=== PATIENT | female | born 1945 | race Caucasian/White ===

== ENCOUNTER 2017-06-03 12:43 | Emergency (ER) | payer MEDICARE, OTHER ==
[2017-06-03 13:37] LABS: #Basophils 0.1 thou/uL (0.0-0.2); #Eosinphils 0.2 thou/uL (0.0-0.7); #Lymphocytes 1.5 thou/uL (1.20-3.40); #Monocytes 0.9 thou/uL (0.11-0.59); #Neutrophils 11.9 thou/uL (1.40-6.50); %Basophils 0.6 % (0.0-1.0); %Eosinophils 1.2 % (0.0-10.0); %Lymphocytes 10.4 % (21.0-51.0); %Monocytes 6.2 % (0.0-10.0); %Neutrophils 81.6 % (42.0-75.0); Hemoglobin 12.3 g/dL (12.0-16.0); Mean Corpuscular HGB CONC 36.4 g/dL (32.0-36.0); Mean Corpuscular Volume 90.6 fl (81.0-99.0); Mean Platelet Volume 6.6 fL (7.4-10.4); Platelet Count 276 thou/uL (130-400); RBC Distribution Width 11.6 % (11.5-14.5); Red Blood Cell (RBC) Count 3.73 mill/uL (4.20-5.40); White Blood Cell (WBC) Count 14.5 thou/uL (4.8-10.8)
[2017-06-03 13:41] LABS: Prothrombin Time 13.4 SEC (12.0-14.7)
[2017-06-03 13:42] LABS: PTT 34.9 SEC (22.9-36.1)
[2017-06-03 13:49] LABS: ALT (SGPT) 24 U/L (8-55); AST (SGOT) 41 U/L (5-34); Albumin 4.1 g/dL (3.4-4.8); Alkaline Phosphatase 69 U/L (40-150); Anion Gap 14 mmol/L (10-20); BUN (Urea Nitrogen) 25 mg/dL (9.8-20.1); Bilirubin, Total 0.6 mg/dL (0.2-1.2); Calc. Creatinine Clearance 0 mL/min (70-130); Calcium 9.5 mg/dL (7.8-10.44); Carbon Dioxide 22 mmol/L (23-31); Chloride 107 mmol/L (98-107); Estimated GFR-MDRD 46; Globulin 2.7 g/dL (2.4-3.5); Glucose 152 mg/dL (83-110); Lipase 20 U/L (8-78); Potassium 3.9 mmol/L (3.5-5.1); Protein, Total 6.8 g/dL (6.0-8.3); Sodium 139 mmol/L (136-145)
--- NOTE | 2017-06-03 14:13 | RAD ---
LEFT KNEE FOUR VIEWS: History: Trauma. Comparison: None. FINDINGS: There is moderate medial soft tissue edema. No acute fracture. No malalignment. No significant joint effusion. IMPRESSION: Medial soft tissue contusion. POS: [facility]
--- NOTE | 2017-06-03 14:16 | CT ---
CT BRAIN WITHOUT CONTRAST: History: Trauma, injury, trampled by horse. Headache. No loss of consciousness. FINDINGS: No evidence of acute infarct, hemorrhage, midline shift, or abnormal extraaxial fluid collections are seen. The ventricular size is appropriate and the basilar cisterns patent. The bony calvarium is int act. The visualized paranasal sinuses and mastoid air cells are well aerated. IMPRESSION: No CT evidence of acute intracranial process. POS: [facility]
[2017-06-03] MEDS ORDERED: Lidocaine 1% PF 5 ML VIAL ONE (14:35)
--- NOTE | 2017-06-03 14:59 | CT ---
CT CERVICAL SPINE NONCONTRAST: HISTORY: Neck injury. FINDINGS: Vertebral body heights are maintained. There is prominent osteophytosis and multilevel disk space na rrowing. Minimal spondylolisthesis at the cervicothoracic junction has the appearance of degenerativ e changes. There are multilevel severe foraminal stenoses. No acute fracture or dislocation. IMPRESSION: 1. Prominent cervical spondylosis. 2. No acute osseous abnormalities are demonstrated. POS: [facility]
--- NOTE | 2017-06-03 15:02 | CT ---
CT FACE WITHOUT CONTRAST: HISTORY: Trauma. Injured by a horse. COMPARISON: None. FINDINGS: There is a fracture of the maxillary alveolar bone, through the right central and lateral incisors an d canine, with anterior displacement of bone. The posterior alveolar bone does not appear to be frac tured. Normal temporomandibular joint alignment. The mandible is intact. The nasal process of the maxilla is intact. The pterygoid plates are intact. The nasal bones are intact. The medial orbital graham and the later al orbital graham are intact. The globes are normal. No retrobulbar hematoma. There are erosions of the odontoid process. The occipital condyles are intact. The mastoids are wel l aerated. IMPRESSION: Anteriorly displaced fracture of the alveolar bone, right maxilla, through the level of the right kuldeep tral and lateral incisors and right canine. POS: [facility]
--- NOTE | 2017-06-03 15:24 | CT ---
CT CHEST WITH IV CONTRAST: CT ABDOMEN AND PELVIS WITH IV CONTRAST: CT THORACIC SPINE NONCONTRAST: CT LUMBAR SPINE NONCONTRAST: HISTORY: Injured by horse. Chest pain. Abdomen pain. Back injury. FINDINGS: No evidence of pneumothorax or mediastinal hematoma. A 0.4 cm, noncalcified subpleural nodule is pre sent at the left anterior lung base. Multiple stones are present throughout the nondilated renal markus yces. The largest is a 1 cm calculus in the left renal pelvis. No free air or free fluid is apparen t within the abdomen. Scattered diverticula arise from the colon without adjacent inflammation. Rig ht hip internal fixation. Vertebral body heights of the thoracolumbar spine are intact. Grade 1 degenerative spondylolisthesis is apparent at the L4-L5 level and at the cervicothoracic junction. Prominent multilevel osteophyto sis and gas disk phenomenon. No acute fracture or dislocation. IMPRESSION: 1. No acute traumatic injury is demonstrated. 2. Bilateral renal calculi, measuring up to [address]: [facility]
== END 2017-06-03 15:35 | disposition home or self-care (01) ==
LOC: SCSER 12:43
DX: S01.511A Laceration without foreign body of lip, initial encounter (principal); S80.02XA Contusion of left knee, initial encounter; S20.01XA Contusion of right breast, initial encounter; S00.412A Abrasion of left ear, initial encounter; E03.9 Hypothyroidism, unspecified; E78.5 Hyperlipidemia, unspecified; W55.19XA Other contact with horse, initial encounter
CPT/HCPCS: 12002; 40650; 70450; 70486; 71260; 72125; 74177; 80053; 83690; 85025; 85610; 85730; 86850; 86900; 86901; 96374; J2001

== ENCOUNTER 2017-08-04 13:53 | Outpatient (CLI) | payer MEDICARE, OTHER ==
[2017-08-04 15:32] LABS: Hemoglobin 13.3 g/dL (12.0-16.0); Mean Corpuscular HGB CONC 35.2 g/dL (32.0-36.0); Mean Corpuscular Hemoglobin 33.1 pg (27.0-31.0); Mean Corpuscular Volume 93.9 fL (78.0-98.0); Mean Platelet Volume 6.3 fL (7.4-10.4); Platelet Count 248 thou/uL (130-400); RBC Distribution Width 11.9 % (11.5-14.5); Red Blood Cell (RBC) Count 4.03 mill/uL (4.20-5.40); White Blood Cell (WBC) Count 6.9 thou/uL (4.8-10.8)
[2017-08-04 15:34] LABS: Platelet Count 243 thou/uL (130-400)
[2017-08-04 15:42] LABS: PTT 47.4 SEC (22.9-36.1)
[2017-08-04 15:54] LABS: Anion Gap 13 mmol/L (10-20); BUN (Urea Nitrogen) 26 mg/dL (9.8-20.1); Calc. Creatinine Clearance 0 mL/min (70-130); Calcium 10.5 mg/dL (7.8-10.44); Carbon Dioxide 26 mmol/L (23-31); Chloride 105 mmol/L (98-107); Estimated GFR-MDRD 69; Glucose 100 mg/dL (83-110); Potassium 3.6 mmol/L (3.5-5.1); Sodium 140 mmol/L (136-145)
--- NOTE | 2017-08-04 15:58 | RAD ---
ONE VIEW ABDOMEN: HISTORY: Preoperative exam. Renal calculi. FINDINGS: There is a calcification in the left hemiabdomen, paraspinal in location, measuring approximately 1.4 cm. The calcification is presumed to be in the proximal left ureter. Calcifications in the left and right hemipelvis are presumed to be vascular. Bowel gas pattern is no nspecific. Scattered fecal material is noted throughout the colon. Correlate for a component of con stipation. IMPRESSION: Left ureteral calculus as above. POS: [facility]
== END 2017-08-04 13:54 | disposition home or self-care (01) ==
LOC: LABBT 13:53
PROVIDERS: ATTEND Urology
DX: Z01.812 Encounter for preprocedural laboratory examination (principal); N20.1 Calculus of ureter
CPT/HCPCS: 74018; 80048; 85027; 85576; 85610; 85730; 93005; 93010

== ENCOUNTER 2017-08-06 05:46 | Day surgery (SDC) | payer MEDICARE, OTHER ==
[2017-08-04 14:22] VITALS: BMI 29.8
[2017-08-06] MEDS ORDERED: Iothalamate Meglumine 60% 50 ML VIAL FS ONE (06:27)
[2017-08-06] MEDS ORDERED: Famotidine/PF 20 mg/2ml Vial ONE (06:57)
[2017-08-06] MEDS ORDERED: Fentanyl 100 MCG/2 ML VIAL ONE (06:57)
[2017-08-06] MEDS ORDERED: Levofloxacin 500 mg/D5W 100 ml Premix Bag ONE (07:16)
[2017-08-06] MEDS ORDERED: Scopolamine 1.5 mg/72 hour Patch ONE (07:22)
[2017-08-06] MEDS ORDERED: Promethazine HCl 25 MG/ML VIAL ONE (07:35)
--- NOTE | 2017-08-06 08:18 | RAD ---
SUPINE ABDOMEN: INDICATION: Preoperative evaluation. COMPARISON: 08/04/17. FINDINGS: The calcification left abdomen at the level of the L3 vertebrae is unchanged in position. The rounded calcification overlying the left sacrum is unchanged. Numerous vascular calcifications i n the peripheral pelvis are unchanged. There is prominent stool throughout the colon. No significan t interval change. POS: [facility]
--- NOTE | 2017-08-06 10:33 | OP ---
DATE OF PROCEDURE: 08/06/2017 PREOPERATIVE DIAGNOSIS: Left proximal ureteral stone. POSTOPERATIVE DIAGNOSIS: Left proximal ureteral stone. PROCEDURE PERFORMED: Left ESWL. SURGEON: Dr. Marcelino Haile ANESTHETIC: General. ESTIMATED BLOOD LOSS: Not recorded. FINDINGS: There is a kind of a skinny triangular shaped stone in its greatest dimension measured 1.2 cm in the proximal left ureter that was treated with total of about 2600 shocks and a maximum KV lev el of 5. About 2100 were given to the UPJ region and another 500 were given more to the mid junction of the proximal mid ureter away from the lower pole of the kidney. The stone did appear to fragment very well and for that reason a stent was not placed. OPERATIVE TECHNIQUE: After obtaining written and verbal consent from the patient, after documenting normal preoperative blood work, ensuring we could see the stone on a preoperative KUB and after recei ving IV Levaquin, she was taken to the operating suite. She was placed in the supine position on the treatment table. PlexiPulses were placed on her lower extremities and turned on. She was given a g eneral anesthetic and oral obturator intubation. She was placed in the supine position on the [facility] ent table. She was given a general anesthetic, oral obturator intubation. PlexiPulses placed on her lower extremities. The stone was visualized with the fluoroscopy unit. She was coupled with the li thotripsy unit and stone was placed in treatment focal point. Shockwave therapy was commenced. Fluo roscopy was used intermittently to document stone fragmentation and repositioned as necessary. The s tone started breaking up right away, some of the fragments moved down and we did follow them down and treated them more in the proximal ureter and then came back up and treated some remaining fragments that actually looked like they had fallen back into the renal pelvis. After 2600 shocks we could see no further stones to treat and at this point the procedure was terminated. She was awakened, extuba andry, and taken by stretcher to the recovery room.
[2017-08-06] MEDS ORDERED: Lidocaine 1% PF 5 ML VIAL ONE (14:32)
[2017-08-06] MEDS ORDERED: ePHEDrine/0.9% NaCl/PF SYRINGE 50 mg/10 ml ONE (14:32)
[2017-08-06] MEDS ORDERED: Dexamethasone 20 MG/5 ML VIAL ONE (14:32)
[2017-08-06] MEDS ORDERED: PHENYLEPHRINE-NS 100 MCG/ML 10 ML SYRINGE ONE (14:32)
[2017-08-06] MEDS ORDERED: PROPOFOL 200 MG/20 ML VIAL ONE (14:32)
== END 2017-08-06 10:42 | disposition home or self-care (01) ==
LOC: SDC 05:46
PROVIDERS: ATTEND Urology
PROC: 0TF7XZZ Fragmentation in Left Ureter, External Approach (ICD-10-PCS; principal; 2017-08-06)
DX: N20.1 Calculus of ureter (principal); I10 Essential (primary) hypertension; E78.00 Pure hypercholesterolemia, unspecified; Z87.442 Personal history of urinary calculi; Z88.5 Allergy status to narcotic agent; Z88.7 Allergy status to serum and vaccine; Z79.899 Other long term (current) drug therapy
CPT/HCPCS: 74018; J0131; J1100; J1956; J2001; J2550; J2704; J3010; Q9961; S0028

== ENCOUNTER 2018-04-22 05:59 | Day surgery (SDC) | payer MEDICARE, OTHER ==
[2018-04-21 12:29] VITALS: BMI 30.8
[2018-04-22] MEDS ORDERED: Iothalamate Meglumine 60% 50 ML VIAL FS ONE (06:31)
[2018-04-22] MEDS ORDERED: Fentanyl 100 MCG/2 ML VIAL ONE (06:38)
[2018-04-22] MEDS ORDERED: Famotidine/PF 20 mg/2ml Vial ONE (06:39)
[2018-04-22] MEDS ORDERED: Scopolamine 1.5 mg/72 hour Patch ONE (06:58)
[2018-04-22 07:49] LABS: #Basophils 0.1 thou/uL (0.0-0.2); #Eosinphils 0.2 thou/uL (0.0-0.7); #Lymphocytes 1.5 thou/uL (1.20-3.40); #Monocytes 0.5 thou/uL (0.11-0.59); #Neutrophils 2.8 thou/uL (1.40-6.50); %Basophils 1.5 % (0.0-1.0); %Eosinophils 4.6 % (0.0-10.0); %Lymphocytes 29.1 % (21.0-51.0); %Monocytes 9.6 % (0.0-10.0); %Neutrophils 55.3 % (42.0-75.0); Hemoglobin 13.2 g/dL (12.0-16.0); Mean Corpuscular HGB CONC 34.1 g/dL (32.0-36.0); Mean Corpuscular Hemoglobin 32.7 pg (27.0-31.0); Mean Corpuscular Volume 95.8 fL (78.0-98.0); Mean Platelet Volume 7.1 fL (7.4-10.4); Platelet Count 209 thou/uL (130-400); RBC Distribution Width 11.4 % (11.5-14.5); Red Blood Cell (RBC) Count 4.04 mill/uL (4.20-5.40); White Blood Cell (WBC) Count 5.1 thou/uL (4.8-10.8)
[2018-04-22 07:50] LABS: Platelet Count 209 thou/uL (130-400)
[2018-04-22 07:55] LABS: Prothrombin Time 12.8 SEC (12.0-14.7)
[2018-04-22 07:56] LABS: PTT 46.5 SEC (22.9-36.1)
--- NOTE | 2018-04-22 08:01 | RAD ---
PREOPERATIVE RADIOGRAPH ABDOMEN: HISTORY: Patient with renal calculi. History of gross hematuria. FINDINGS: AP abdomen demonstrates bilateral renal calculi again seen. This is seen in the mid pole of the righ t kidney and in the upper pole of the left kidney. This is compatible with nonobstructing bilateral renal calculi. There is a large area of calcification in the left sacral region as well as numerous calcifications seen in the pelvis compatible with phleboliths. These appear to be outside of the cou rse of the ureters seen on CT from 03/16/2018. POS: [facility]
[2018-04-22 08:08] LABS: Anion Gap 10 mmol/L (10-20); BUN (Urea Nitrogen) 27 mg/dL (9.8-20.1); Calc. Creatinine Clearance 64 mL/min (70-130); Calcium 10.2 mg/dL (7.8-10.44); Carbon Dioxide 27 mmol/L (23-31); Chloride 106 mmol/L (98-107); Estimated GFR-MDRD 64; Glucose 95 mg/dL (83-110); Sodium 139 mmol/L (136-145)
--- NOTE | 2018-04-22 13:32 | OP ---
DATE OF PROCEDURE: 04/22/2018 PREOPERATIVE DIAGNOSIS: Right renal stone. POSTOPERATIVE DIAGNOSIS: Right renal stone. PROCEDURE PERFORMED: Right extracorporeal shock wave lithotripsy. ANESTHETIC: General. ESTIMATED BLOOD LOSS: Not recorded. FINDINGS: There was a 6 to 8 mm right renal pelvic stone that was treated with 2000 shocks at level 4 and level 5, mostly at level 4, probably 500 shocks were given at level 5. It did appear to fragment. The stent was not placed. DESCRIPTION OF PROCEDURE: Obtained written and verbal consent from the patient after being sure we could see the stone on the preoperative KUB and documenting normal preoperative blood work, she was taken to the operating suite. She was placed in the supine position on the treatment table. PlexiPulses were placed on her lower extremities and turned on. She was given a general anesthetic and oral obturator intubation. She was coupled to the lithotripsy unit. The stone was placed in treatment focal point. Shockwave therapy was started at very low kV and a low rate. After a couple of 100 shocks, a 5 minute pause was given. We then restarted the treatment, slowly going up to level 4, the last 500 or so level 5, treating at about 60 shocks per minute. Fluoroscopy was used intermittently to document stone fragmentation and reposition as necessary. It did appear that the stone fragmented well. No stent was placed. At the end of 2000 shocks, the procedure was terminated. She was awakened, extubated, and taken by hilda to recovery room. Job ID: [id number]
[2018-04-22] MEDS ORDERED: ePHEDrine 50 MG/ML VIAL ONE (15:10)
[2018-04-22] MEDS ORDERED: Ondansetron PF 4 MG/2 ML Vial ONE (15:10)
[2018-04-22] MEDS ORDERED: PHENYLEPHRINE-NS 100 MCG/ML 10 ML SYRINGE ONE (15:10)
[2018-04-22] MEDS ORDERED: Glycopyrrolate 0.2 MG/ML 5 ML SYRINGE ONE (15:10)
[2018-04-22] MEDS ORDERED: Metoclopramide HCl 10 MG/2 ML VIAL ONE (15:10)
[2018-04-22] MEDS ORDERED: Dexamethasone 20 MG/5 ML VIAL ONE (15:10)
[2018-04-22] MEDS ORDERED: Lidocaine 1% PF 5 ML VIAL ONE (15:10)
[2018-04-22] MEDS ORDERED: PROPOFOL 200 MG/20 ML VIAL ONE (15:10)
--- NOTE | 2018-04-22 18:43 | EKG ---
Test Reason : PREOP Blood Pressure : / mmHG Vent. Rate : 059 BPM Atrial Rate : 059 BPM P-R Int : 160 ms QRS Dur : 094 ms QT Int : 432 ms P-R-T Axes : 010 -29 036 degrees QTc Int : 427 ms Sinus bradycardia with sinus arrhythmia Otherwise normal ECG When compared with ECG of 04-AUG-2017 15:19, No significant change was found Confirmed by DR. Muna FRANZ (3) on 04/22/2018 6:42:39 PM Referred By: CASIE Confirmed By:DR. Muna FRANZ
== END 2018-04-22 12:00 | disposition home or self-care (01) ==
LOC: SDC 05:59
PROVIDERS: ATTEND Urology
PROC: 0TF3XZZ Fragmentation in Right Kidney Pelvis, External Approach (ICD-10-PCS; principal; 2018-04-22)
DX: N20.0 Calculus of kidney (principal); E03.9 Hypothyroidism, unspecified; K21.9 Gastro-esophageal reflux disease without esophagitis; F32.9 Major depressive disorder, single episode, unspecified; I10 Essential (primary) hypertension; Z79.82 Long term (current) use of aspirin; Z79.899 Other long term (current) drug therapy; Z88.5 Allergy status to narcotic agent; Z88.7 Allergy status to serum and vaccine
CPT/HCPCS: 36415; 74018; 80048; 85025; 85576; 85610; 85730; 93005; 93010; J0131; J1100; J2001; J2405; J2704; J2765; J3010; J3490; Q9961; S0028

== ENCOUNTER 2018-05-28 11:42 | Outpatient (CLI) | payer MEDICARE, OTHER ==
--- NOTE | 2018-05-28 12:07 | RAD ---
Lumbar spine 2 views HISTORY: Low back pain. Right leg radiculopathy. COMPARISON: 02/26/2010. FINDINGS: There are 5 lumbar type vertebrae. Pedicles are intact. Leftward convex rotatory scoliotic curvature of the upper lumbar spine on the frontal view. Vertebral body heights are maintained on the lateral view. Disc space narrowing and endplate changes are most severe at the L1-2 level. Gas disc phenomenon at this level. Minimal degenerative retrolisthesis. Grade 1 spondylolisthesis at the L4-5 level. Prominent osteophytosis throughout the lower facets. Oss eous structures are demineralized. Phleboliths project over the pelvis. Metallic clips over the gallbladder fossa. IMPRESSION: Progression of now prominent osseous degenerative changes throughout the lumbar spine. No evidence of compression fracture. Osteoporosis.
== END 2018-05-28 11:43 | disposition home or self-care (01) ==
LOC: SCSRAD 11:42
PROVIDERS: ATTEND Psychiatry & Neurology Neurology
DX: M51.26 Other intervertebral disc displacement, lumbar region (principal); M47.816 Spondylosis without myelopathy or radiculopathy, lumbar region; M81.0 Age-related osteoporosis without current pathological fracture
CPT/HCPCS: 72100

== ENCOUNTER 2018-12-01 10:37 | Outpatient (CLI) | payer MEDICARE, OTHER ==
--- NOTE | 2018-12-01 15:55 | MRI ---
MR OF THE LEFT SHOULDER WITHOUT CONTRAST; 12/01/18 INDICATION: History of fall with left shoulder pain. FINDINGS: There is a high grade articular surface, near full thickness tear involving the subscapularis. There is a minimally displaced vertically oriented fracture involving the posterior glenoid. There is medi al subluxation of the proximal long head of the biceps tendon with biceps tendinosis. There is a part ial thickness split tear involving the proximal long head of the biceps tendon as it enters the gleno humeral joint space. There is prominent degenerative signal involving the biceps anchor complex and s uperior glenoid labrum. There is a high grade partial thickness articular surface tear involving the anterior to mid supraspinatus with intertendinous delamination involving the posterior supraspinatus and conjoined tendon at the tendon insertion. The supraspinatus tear involves approximately 90% of th e tendon thickness. There is moderate tendinosis of the infraspinatus. There is a 3.4 x 6 mm calcific ation seen within the infraspinatus consistent with changes of calcific tendinosis. No muscular atrop hy is present. There is mild AC joint osteoarthrosis. IMPRESSION: 1. Nondisplaced vertically oriented fracture involving the posterior glenoid. 2. Near full thickness tear involving the subscapularis with medial subluxation along the head o f the biceps tendon with prominent biceps tendinosis and an intra-articular long head of the biceps t endon split tear. 3. High grade partial thickness articular surface tear of the anterior to mid supraspinatus with intertendinous delamination of the posterior supraspinatus and conjoined tendon. 4. Calcific tendinosis of the infraspinatus. 5. Mild AC joint osteoarthrosis. POS: [facility]
== END 2018-12-01 10:38 | disposition home or self-care (01) ==
LOC: SCSMRI 10:37
PROVIDERS: ATTEND Orthopaedic Surgery
DX: M75.112 Incomplete rotator cuff tear or rupture of left shoulder, not specified as traumatic (principal); M19.012 Primary osteoarthritis, left shoulder; M75.82 Other shoulder lesions, left shoulder

== ENCOUNTER 2019-03-27 11:54 | Emergency (ER) | payer MEDICARE, OTHER ==
[2019-03-27] MEDS ORDERED: Morphine 4 MG/ML VIAL ONE (12:20)
[2019-03-27] MEDS ORDERED: Ketorolac Tromethamine 30 MG/ML VIAL ONE (12:20)
[2019-03-27] MEDS ORDERED: Ondansetron PF 4 MG/2 ML Vial ONE (12:20)
[2019-03-27 12:45] LABS: #Eosinphils 0.1 thou/uL (0.0-0.7); #Lymphocytes 0.9 thou/uL (1.20-3.40); #Monocytes 0.5 thou/uL (0.11-0.59); #Neutrophils 7.7 thou/uL (1.40-6.50); %Basophils 0.2 % (0.0-1.0); %Eosinophils 0.7 % (0.0-10.0); %Lymphocytes 9.5 % (21.0-51.0); %Monocytes 5.2 % (0.0-10.0); %Neutrophils 84.5 % (42.0-75.0); Mean Corpuscular HGB CONC 35.2 g/dL (32.0-36.0); Mean Corpuscular Volume 90.8 fL (78.0-98.0); Mean Platelet Volume 7.1 fL (7.4-10.4); Platelet Count 240 thou/uL (130-400); RBC Distribution Width 11.5 % (11.5-14.5); Red Blood Cell (RBC) Count 4.39 mill/uL (4.20-5.40); White Blood Cell (WBC) Count 9.2 thou/uL (4.8-10.8)
[2019-03-27 13:11] LABS: ALT (SGPT) 19 U/L (8-55); AST (SGOT) 24 U/L (5-34); Albumin 4.7 g/dL (3.4-4.8); Alkaline Phosphatase 98 U/L (40-110); Anion Gap 17 mmol/L (10-20); BUN (Urea Nitrogen) 31 mg/dL (9.8-20.1); Bilirubin, Total 0.6 mg/dL (0.2-1.2); Calc. Creatinine Clearance 0 mL/min (70-130); Calcium 10.6 mg/dL (7.8-10.44); Carbon Dioxide 29 mmol/L (23-31); Chloride 100 mmol/L (98-107); Estimated GFR-MDRD 47; Globulin 2.7 g/dL (2.4-3.5); Glucose 125 mg/dL (83-110); Potassium 3.7 mmol/L (3.5-5.1); Protein, Total 7.4 g/dL (6.0-8.3); Sodium 142 mmol/L (136-145)
--- NOTE | 2019-03-27 13:36 | CT ---
CT ABDOMEN AND PELVIS: 03/27/2019 HISTORY: Right flank pain. COMPARISON: 03/16/2018 TECHNIQUE: Axial CT imaging at 5 mm intervals from the lung bases through the pubic symphysis without contrast w ith coronal and sagittal reformatted imaging. FINDINGS: Lack of contrast limits assessment of the viscera, bowel, vascular structures and for lymphadenopathy . The imaged lung bases are unremarkable. No free intraperitoneal air. Cholecystectomy clips are present. A small sliding type hiatal hernia is present. Limited evaluation of the liver, spleen, pancreas and adrenal glands is unremarkable. There is a punctate, nonobstructing stone in the lower pole of the left kidney. There is a small cyst in the mid pole of the left kidney, measuring 1 cm. No evidence for obstructive uropathy on the left. There is hydronephrosis and proximal hydroureter on the right secondary to an obstructing stone withi n the proximal right ureter, just distal to the level of the ureteropelvic junction, measuring approx imately 1 cm in craniocaudal dimension. There is postoperative hardware within the right femoral neck . There is diverticulosis without evidence for diverticulitis involving the sigmoid colon. No evidenc e for bowel inflammatory change or obstruction. The appendix is unremarkable. There is scattered atherosclerotic calcification of the abdominal aorta and its branches. No acute os seous abnormality. There is prominent multilevel degenerative change within the lower thoracic spine. There is prominent degenerative endplate change at L1-L2. There is multilevel lower lumbar spine facet hypertrophy. The re is anterolisthesis at L4-L5, measuring 5 mm, and there is multilevel lumbar spine vacuum disk form ation IMPRESSION: There obstructive uropathy on the right secondary to a proximal obstructing right ureteral stone, graham suring approximately 1 cm in craniocaudal dimension. Punctate, nonobstructing stone noted in the lowe r pole of the left kidney. Additional incidental findings as described above. POS: [facility]
[2019-03-27 14:02] LABS: Bilirubin Negative (Negative); Blood, Urine Large (Negative); Glucose, Urine (Dipstick) Negative (Negative); Leukocyte Negative (Negative); Nitrite Negative (Negative); Protein, Urine (Dipstick) Negative (Neg-Trace)
[2019-03-27 14:04] LABS: Clarity Clear (Clear)
[2019-03-27 14:09] LABS: Bacteria/HPF 2+ HPF (None Seen); Squamous Epithelial 0-3 HPF (0-3); WBC/HPF 0-3 HPF (0-3)
== END 2019-03-27 15:05 | disposition home or self-care (01) ==
LOC: ERS 11:54
DX: N13.2 Hydronephrosis with renal and ureteral calculous obstruction (principal); I10 Essential (primary) hypertension; E03.9 Hypothyroidism, unspecified; E78.5 Hyperlipidemia, unspecified; E78.00 Pure hypercholesterolemia, unspecified
CPT/HCPCS: 74176; 80053; 81003; 81015; 85025; 87086; J1885; J2270; J2405

== ENCOUNTER 2019-03-28 20:12 | Inpatient (IN) | payer MEDICARE, OTHER ==
[2019-03-28] MEDS ORDERED: Morphine 4 MG/ML VIAL ONE (21:27)
[2019-03-28] MEDS ORDERED: Ondansetron PF 4 MG/2 ML Vial ONE (21:27)
[2019-03-28] MEDS ORDERED: Ketorolac Tromethamine 30 MG/ML VIAL ONE (21:27)
[2019-03-28 22:05] LABS: #Eosinphils 0.2 thou/uL (0.0-0.7); #Lymphocytes 1.2 thou/uL (1.20-3.40); #Monocytes 0.7 thou/uL (0.11-0.59); #Neutrophils 6.3 thou/uL (1.40-6.50); %Basophils 0.5 % (0.0-1.0); %Eosinophils 2.6 % (0.0-10.0); %Lymphocytes 13.6 % (21.0-51.0); %Monocytes 8.5 % (0.0-10.0); %Neutrophils 74.8 % (42.0-75.0); Mean Corpuscular HGB CONC 34.8 g/dL (32.0-36.0); Mean Corpuscular Hemoglobin 31.8 pg (27.0-31.0); Mean Corpuscular Volume 91.4 fL (78.0-98.0); Mean Platelet Volume 7.6 fL (7.4-10.4); Platelet Count 218 thou/uL (130-400); RBC Distribution Width 11.6 % (11.5-14.5); White Blood Cell (WBC) Count 8.5 thou/uL (4.8-10.8)
--- NOTE | 2019-03-28 22:14 | CT ---
Exam: Abdomen CT without contrast Pelvic CT without contrast HISTORY: Obstructive uropathy due to a right ureteral calculus, noted yesterday COMPARISON: 03/27/2019 FINDINGS: Abdomen CT: Lung bases:No significant interval change Heart size: Stable heart size Aorta: Stable atherosclerosis Solid organs: Stable attenuation. Lymph nodes: No gastrohepatic, retrocrural or periportal lymphadenopathy Gallbladder: Surgically absent Mesentery: No mass, lymphadenopathy, free air or free fluid Kidneys: No evidence of left-sided obstructive uropathy. Redemonstration of a 0.6 cm calculus in the right ureteropelvic junction with associated moderate hydronephrosis. There is interval development of fat stranding peripheral to the right renal pelvis and along the right perinephric space. Alimentary canal: There does appear to be some inflammatory change around the duodenum which may be r eactive secondary to changes in the right kidney. There is evidence of adjacent fluid. No bowel obstruction. Ileocecal junction is unremarkable. Normal caliber appendix. Scattered fecal material in a nondistended, nondilated colon. Occasional diverticulum. No diverticulitis. CT PELVIS: No mass, adenopathy, free air or free fluid. Uterus and adnexal structures are grossly unremarkable Urinary bladder: Unremarkable. Osseous structures: Stable scoliosis and degenerative change. IMPRESSION: 1. Interval development of moderate right-sided hydronephrosis. There is interval development of righ t perinephric and peripelvic fat stranding. Redemonstration of a calculus in the right ureteral pelvic junction. 2. Possible mild edematous change involving the duodenum. Findings may be secondary to inflammatory c hange along the right kidney, given retroperitoneal location of both regions. Correlate clinically. Transcribed Date/Time: 03/28/2019 10:31 PM
[2019-03-28 22:28] LABS: ALT (SGPT) 21 U/L (8-55); AST (SGOT) 29 U/L (5-34); Albumin 4.3 g/dL (3.4-4.8); Alkaline Phosphatase 94 U/L (40-110); Anion Gap 13 mmol/L (10-20); BUN (Urea Nitrogen) 24 mg/dL (9.8-20.1); Bilirubin, Total 0.5 mg/dL (0.2-1.2); Calc. Creatinine Clearance 0 mL/min (70-130); Calcium 9.8 mg/dL (7.8-10.44); Carbon Dioxide 26 mmol/L (23-31); Chloride 103 mmol/L (98-107); Estimated GFR-MDRD 40; Globulin 2.8 g/dL (2.4-3.5); Glucose 122 mg/dL (83-110); Potassium 3.4 mmol/L (3.5-5.1); Protein, Total 7.1 g/dL (6.0-8.3); Sodium 139 mmol/L (136-145)
[2019-03-28 22:50] LABS: Bacteria/HPF None Seen HPF (None Seen); Bilirubin Negative (Negative); Blood, Urine 1+ (Negative); Clarity Clear (Clear); Glucose, Urine (Dipstick) Normal (Negative); Leukocyte Negative Leu/uL (Negative); Nitrite Negative (Negative); Protein, Urine (Dipstick) Negative (Neg-Trace); Squamous Epithelial 0-3 HPF (0-3); Urobilinogen Normal mg/dL (Less than 2)
[2019-03-28] MEDS ORDERED: cefTRIAXone\\ROCEPHIN 2 GM VIAL ONE (23:29)
[2019-03-29] MEDS ORDERED: Calcium Carbonate 500 MG ChewTAB PO PRN (01:08)
[2019-03-29] MEDS ORDERED: Senokot S 8.6-50 MG TAB PO PRN (01:08)
[2019-03-29] MEDS ORDERED: Acetaminophen 325 MG TAB PO PRN (01:08)
[2019-03-29] MEDS ORDERED: Tamsulosin HCl 0.4 MG CAP PO SCH ×2 (01:15→21:00)
[2019-03-29] MEDS ORDERED: Magnesium 2 GM/50 ML 2 GM in Premix Bag 1 BAG IVPB SCH (01:15)
[2019-03-29 01:21] VITALS: BMI 31.1
--- NOTE | 2019-03-29 01:31 | PDOC.EVN ---
Event Note - Event Note Event Note: Note dictated. Full code. DPOA - spouse
[2019-03-29] MEDS: NS 0.9% w/ 20 MEQ KCL 1,000 ML/1,000 ML BAG IV SCH ×3 (01:55→21:44)
[2019-03-29] MEDS: Piperacillin/Tazobactam 3.375 GM in Sodium Chloride 0.9% 100 ML IVPB SCH ×4 (02:05→21:44)
--- NOTE | 2019-03-29 02:09 | HP ---
The patient was seen and examined on March 28, 2019. PRIMARY CARE PHYSICIAN: Dr. Palmer. CHIEF COMPLAINT: Right flank pain. HISTORY OF PRESENT ILLNESS: The patient is a 74-year-old female with multiple renal calculi in the past, presented to the emergency room with the right flank pain. The pain has been going on for last 24 hours. It is constant, worse with movement. She has nausea without any vomiting. The pain is sharp/stabbing in nature. The pain has been gradually getting worse. The patient has a history of chronic urinary incontinence. She denies any new urinary symptoms. No hematuria reported. She denies any change in her bowel habits. The patient was evaluated in the emergency room yesterday and was found to have 1-cm stone just distal to the right ureteropelvic junction with hydronephrosis to the right kidney. The case was discussed with Urology who recommended the patient to follow up in the clinic on Friday. The patient continued to have significant pain for which she presented to the emergency room today. PAST MEDICAL HISTORY: 1. Recurrent renal calculi. 2. 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 3. Hypertension. 4. Hyperlipidemia. 5. Hypothyroidism. 6. Degenerative joint disease. 7. Restless legs syndrome. PAST SURGICAL HISTORY: 1. Right hip surgery. 2. Cholecystectomy. 3. Tubal ligation. 4. Multiple procedures for renal calculi. 5. Right carpal tunnel release. ALLERGIES: 1. THE PATIENT IS ALLERGIC TO CODEINE THAT CAUSES HIVES. 2. TETANUS TOXOID. CURRENT HOME MEDICATIONS: Per the ER record, the patient is on; 1. Amlodipine. 2. Amitriptyline. 3. Celexa. 4. Crestor. 5. Levothyroxine. 6. Hydrochlorothiazide. 7. Tramadol. 8. She was started on Flomax yesterday; however, she has not started yet. SOCIAL HISTORY: The patient currently lives at home with her family. She denies current use of tobacco, alcohol, or drug use. FAMILY HISTORY: Both parents with heart disease. REVIEW OF SYSTEMS: All other review of systems were reviewed and were found negative. PHYSICAL EXAMINATION: VITAL SIGNS: Temperature 99.1, respirations of 18, pulse of 78, blood pressure of 143/68, and O2 saturation 96% on room air. GENERAL: A 74-year-old female in mild distress due to intractable right flank pain. HEENT: Head, atraumatic and normocephalic. Sclerae anicteric. Moist mucous membrane. No oral lesion. NECK: Supple. No JVD appreciated. No carotid bruit. LUNGS: Clear to auscultation bilaterally. No wheezing, rales, or rhonchi. HEART: S1 and S2 present. Regular rate and rhythm. No rubs or gallops. ABDOMEN: Soft, nontender. Bowel sounds present. No rebound or guarding. No costovertebral angle tenderness. EXTREMITIES: No edema or calf tenderness. NEUROLOGIC: Grossly nonfocal. Moves all 4 extremities. PSYCHIATRIC: Alert, awake, and oriented x3. SKIN: Warm and dry. LYMPH NODES: No palpable lymph nodes in the neck. LABORATORY FINDINGS: CBC showed WBC 8.5 with hemoglobin 13, hematocrit 37.5, and platelets 218. Chemistry showed sodium 139, potassium 3.4, chloride 103, bicarb 26, BUN 24, and creatinine 1.31. Magnesium 1.6. Urinalysis showed 4 to 6 wbc's, 4 to 6 rbc's without any bacteria. IMAGING STUDIES: CT scan of the abdomen and pelvis by my review showed interval development of moderate right-sided hydronephrosis with right perinephric and peripelvic fat stranding with calculus at the right ureteropelvic junction. There was also a possible mild edematous changes involving the duodenum, probably secondary to inflammatory changes in the right kidney. IMPRESSION: 1. Moderate right-sided hydronephrosis, secondary to right ureteral calculus at the right ureteropelvic junction with possible pyelonephritis. 2. Possible mild edematous changes involving the duodenum, probably secondary to right kidney inflammation. 3. Hypokalemia/hypomagnesemia. 4. Acute kidney injury on chronic kidney disease, stage 2, probably secondary to moderate right-sided hydronephrosis. 5. History of multiple renal calculi in the past. 6. Hypertension. 7. Hyperlipidemia. 8. Hypothyroidism. 9. History of transverse myelitis. 10. Restless legs syndrome. 11. Anxiety. PLAN: 23-hour admission to the medical floor. We will start her on IV hydration. Replace electrolytes. Pain control with IV morphine. Consult Urology. Empiric antibiotics for possible pyelonephritis. Urine cultures have been sent. Continue Flomax. Resume other selected home medications once verified. We will keep the patient n.p.o. past midnight. The patient understands the above plan of care. Job ID: [id number]
[2019-03-29] MEDS: Morphine 2 MG/ML SYRINGE SLOW IVP PRN ×4 (04:46→16:57)
[2019-03-29 04:48] LABS: #Eosinphils 0.2 thou/uL (0.0-0.7); #Lymphocytes 0.9 thou/uL (1.20-3.40); #Monocytes 0.5 thou/uL (0.11-0.59); #Neutrophils 4.5 thou/uL (1.40-6.50); %Eosinophils 2.9 % (0.0-10.0); %Lymphocytes 14.8 % (21.0-51.0); %Monocytes 8.7 % (0.0-10.0); %Neutrophils 73.7 % (42.0-75.0); Hemoglobin 11.3 g/dL (12.0-16.0); Mean Corpuscular HGB CONC 34.5 g/dL (32.0-36.0); Mean Corpuscular Hemoglobin 31.9 pg (27.0-31.0); Mean Corpuscular Volume 92.7 fL (78.0-98.0); Platelet Count 161 thou/uL (130-400); RBC Distribution Width 11.4 % (11.5-14.5); Red Blood Cell (RBC) Count 3.52 mill/uL (4.20-5.40); White Blood Cell (WBC) Count 6.1 thou/uL (4.8-10.8)
[2019-03-29 05:01] LABS: Anion Gap 9 mmol/L (10-20); BUN (Urea Nitrogen) 18 mg/dL (9.8-20.1); Calc. Creatinine Clearance 61 mL/min (70-130); Calcium 8.8 mg/dL (7.8-10.44); Carbon Dioxide 29 mmol/L (23-31); Chloride 106 mmol/L (98-107); Estimated GFR-MDRD 60; Glucose 117 mg/dL (83-110); Potassium 3.6 mmol/L (3.5-5.1); Sodium 140 mmol/L (136-145)
[2019-03-29] MEDS ORDERED: Levothyroxine Sodium 25 MCG TAB PO SCH (06:00)
[2019-03-29] MEDS ORDERED: Levothyroxine Sodium 112 MCG TAB PO SCH (06:00)
[2019-03-29] MEDS ORDERED: Amlodipine 5 MG TAB PO SCH (09:00)
[2019-03-29 09:02] LABS: Platelet Count 164 thou/uL (130-400)
[2019-03-29 09:48] LABS: EPI Greater than 241 SEC (67-199)
[2019-03-29 09:49] LABS: ADP 89 SEC (39-127)
[2019-03-29 09:50] LABS: ADP Status Message No Message
[2019-03-29] MEDS ORDERED: Ondansetron PF 4 MG/2 ML Vial ONE (09:54)
[2019-03-29] MEDS ORDERED: Dexamethasone 20 MG/5 ML VIAL ONE (09:54)
[2019-03-29] MEDS ORDERED: PROPOFOL 200 MG/20 ML VIAL ONE (09:54)
[2019-03-29] MEDS ORDERED: Lidocaine 1% PF 5 ML VIAL ONE (09:54)
[2019-03-29] MEDS ORDERED: Succinylcholine Chloride 20 MG/ML 10 ml SYRINGE FS ONE (09:54)
--- NOTE | 2019-03-29 10:06 | PDOC.HOSPP ---
- Subjective Encounter Date: 03/29/19 Encounter Time: 10:03 Subjective: right flank pain, unrelieved by po hydrocodone - Objective Vital Signs & Weight: Vital Signs (12 hours) Temp Pulse Resp BP BP Pulse Ox 03/29/19 08:20 80 142/60 H 03/29/19 07:51 98.7 F 80 21 H 142/60 H 94 L 03/29/19 03:14 98.1 F 86 18 132/61 97 03/29/19 00:35 98.7 F 73 18 157/72 H 97 Weight Weight 159 lb 6.4 oz I&O: 03/28/19 03/29/19 03/30/19 06:59 06:59 06:59 Output Total 400 Balance -400 Result Diagrams: 03/29/19 04:19 03/29/19 04:19 Hospitalist ROS - Medication Medications: Active Medications Generic Name Dose Route Start Last Admin Trade Name Freq PRN Reason Stop Dose Admin Amlodipine Besylate 5 mg 03/29/19 09:00 03/29/19 08:20 Norvasc PO 5 mg BID ISABEL Administration Potassium Chloride/Sodium Chloride 1,000 ml in 1,000 mls @ 100 mls/hr 01:15 03/29/19 01:55 Ns 0.9% W/ 20 Meq Kcl IV 1,000 mls .Q10H ISABEL Administration Piperacillin Sod/Tazobactam 100 mls @ 200 mls/hr 03/29/19 02:00 03/29/19 08: 16 Sod 3.375 gm/ Sodium Chloride IVPB 100 mls 0200,0800,1400,2000 ISABEL Administration Levothyroxine Sodium 112 mcg 03/29/19 06:00 03/29/19 04:46 Synthroid PO 112 mcg 0600 ISABEL Administration Levothyroxine Sodium 25 mcg 03/29/19 06:00 03/29/19 04:46 Synthroid PO 25 mcg 0600 ISABEL Administration Pantoprazole Sodium 40 mg 03/29/19 09:00 03/29/19 08:20 Protonix PO 40 mg DAILY ISABEL Administration - Exam General Appearance: awake alert Neck: no JVD Heart: RRR, no murmur Respiratory: CTAB Gastrointestinal: soft, normal bowel sounds Extremities: no edema Hosp A/P (1) Renal colic on right side Code(s): N23 - UNSPECIFIED RENAL COLIC Status: Acute (2) Ureteral stone with hydronephrosis Code(s): N13.2 - HYDRONEPHROSIS WITH RENAL AND URETERAL CALCULOUS OBSTRUCTION Status: Acute (3) Acute renal failure Status: Acute (4) HTN (hypertension) Code(s): I10 - ESSENTIAL (PRIMARY) HYPERTENSION Status: Chronic Qualifiers: Hypertension type: essential hypertension Qualified Code(s): I10 - Essential (primary) hypertension - Plan inpatient status morphine iv for pain await recommendations
[2019-03-29] MEDS: traMADol HCl 50 MG TAB PO PRN (14:34)
--- NOTE | 2019-03-29 14:36 | CON ---
DATE OF CONSULTATION: 03/29/2019 This is a patient well known to me. 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 She puts up with the symptoms from it. She has been in the ER two times this past weekend with severe right flank pain. She has a history of stone disease and she has a right proximal ureteral stone. She had two CAT scans that have shown this. Vital signs are stable. She is afebrile and does not appear that she has a urinary tract infection. Her creatinine is normal. I have talked with her about placing a stent. She has had stents twice before and she has been miserable with them, so she wishes not to do that. She wishes lithotripsy, which was used on her before. Unfortunately, her platelet function assay is abnormal because of receiving Toradol in the ER this weekend, so we cannot do shockwave therapy today. We could possibly do it this Friday if her lab work corrects itself. Until then, our only option to be a stent or nephrostomy tube. I do not know that a nephrostomy tube would be in her best interest over stent; however, it may be something that would be the only thing that she will desire if it comes to that. She is not septic. As mentioned, her creatinine is normal at 0.9, and her white count was normal and she is afebrile. She is on Flomax, although I do not think this is a stone she is going to be able to pass. She is off all blood thinners at this point. I will follow along with you tomorrow, but we have canceled her n.p.o. for today she would not have a stent or nephrostomy tube placed today. Job ID: [id number]
[2019-03-29] MEDS ORDERED: Fentanyl 100 MCG/2 ML VIAL ONE ×3 (18:14→20:42)
[2019-03-29] MEDS ORDERED: Iothalamate Meglumine 60% 50 ML VIAL FS ONE (18:17)
[2019-03-29] MEDS ORDERED: Scopolamine 1.5 mg/72 hour Patch ONE (18:21)
[2019-03-29] MEDS ORDERED: HYDROmorphone 2 MG/ML VIAL SLOW IVP PRN (19:39)
[2019-03-29] MEDS ORDERED: Promethazine HCl 25 MG/ML VIAL SLOW IVP PRN (19:39)
[2019-03-29] MEDS ORDERED: Ondansetron HCl/PF 4 MG/2 ML Vial IVP PRN (19:39)
[2019-03-29] MEDS ORDERED: Promethazine HCl 25 MG/ML VIAL IM PRN (19:39)
--- NOTE | 2019-03-29 19:58 | RAD ---
RETROGRADE PYELOGRAM: History: Stent placement. FINDINGS: This is a series of 11 films which show stent placement within the right ureter. The stent appears to be in good position. Filling defect is seen within the right renal pelvis. IMPRESSION: Placement of a ureteral stent. POS: DANE
[2019-03-29] MEDS ORDERED: Metoprolol Tartrate 5 MG/5 ML VIAL ONE (20:08)
--- NOTE | 2019-03-29 20:32 | PDOC.EVN ---
Event Note - Event Note Event Note: After cystoscopy and stent placement patient went into Afib with RVR in recovery room, HR up to 140s, no symptoms. Given 5mg Lopressor IV by anesthesia and HR now in 80-90s. Still no symptoms. No history of Afib. BP 130s systolic. Will add Metoprolol 50mg BID starting tonight. Transfer to telemetry. Consult Cardiology in the morning.
--- NOTE | 2019-03-29 20:36 | OP ---
DATE OF PROCEDURE: 03/29/2019 PREOPERATIVE DIAGNOSIS: Right proximal ureteral stone with intractable pain. POSTOPERATIVE DIAGNOSIS: Right proximal ureteral stone with intractable pain. PROCEDURES PERFORMED: Cystoscopy, right retrograde, and right stent. ANESTHESIA: General. ESTIMATED BLOOD LOSS: None. FINDINGS: She had a right proximal ureteral stone. It is probably 8 to 10 mm. It was easy to see on her KUB with fluoroscopic unit. DRAINS PLACED: A 6 x 24 Polaris double-J stent without a string attached. We also placed a 16-Norwegian Pittman catheter. DESCRIPTION OF PROCEDURE: After obtained written and verbal consent from the patient, she was taken to the operating suite. She was placed in supine position on treatment table. PlexiPulses were placed on her lower extremities and turned on. She was given a general anesthetic and oral intubation, placed in dorsal lithotomy position, sterilely prepped and draped for cysto. The fluoroscopy unit was used. KUB was taken with it. Cystoscopy was performed with a 22-Norwegian sheath. This was well lubricated, placed under direct vision through the female urethra into the bladder with aid of a 30-degree lens, video camera, and monitor. The bladder was filled and emptied number of times. It was examined. There was no evidence of tumor, foreign body, or stone. Two ureteral orifices in normal position. A 5-Norwegian Pollack catheter was flushed with contrast, placed about 2 cm up the right ureter and contrast injected in a retrograde manner showing a proximal ureteral stone causing right hydronephrosis. A guidewire was fed by this obstructing stone and up into the renal pelvis. The open-ended catheter was advanced up to this region, and we drained some slightly bloody urine, but it was not foul smelling and not purulent. The wire was replaced. The open-ended catheter was removed. A stent was placed over the guidewire and pushed up into place with aid of a pusher, so its proximal end coiled in the renal pelvis and its distal end coiled in the bladder when the wire was removed. A Pittman catheter was then sterilely placed, and 10 mL placed in the balloon. She was taken out of the dorsal lithotomy position, awakened, extubated, and taken by stretcher to recovery room. Job ID: [id number]
[2019-03-29] MEDS ORDERED: Piperacillin/Tazobactam 3.375 GM VIAL ONE ×2 (20:58→21:39)
[2019-03-29] MEDS ORDERED: Sodium Chloride 0.9% 100 ML ONE (20:59)
[2019-03-29] MEDS ORDERED: TIZANIDINE HCL PO SCH (21:00)
[2019-03-29] MEDS ORDERED: Amitriptyline HCl 10 MG TAB PO SCH (21:00)
[2019-03-29] MEDS ORDERED: Amlodipine 10 MG TAB PO SCH ×2 (21:00)
[2019-03-29] MEDS: Metoprolol Tartrate 50 MG TAB PO SCH (21:55)
[2019-03-29] MEDS: tiZANidine HCl 4 MG TAB PO SCH (21:55)
[2019-03-29] MEDS: Rosuvastatin 10 MG TAB PO SCH (21:56)
[2019-03-29] MEDS: Amitriptyline HCl 25 MG TAB PO SCH (21:57)
[2019-03-29] MEDS: Citalopram 20 MG TAB PO SCH (21:57)
[2019-03-30] MEDS: Piperacillin/Tazobactam 3.375 GM in Sodium Chloride 0.9% 100 ML IVPB SCH ×3 (02:56→16:00)
[2019-03-30] MEDS: Levothyroxine Sodium 25 MCG TAB PO SCH (06:23)
[2019-03-30] MEDS: Levothyroxine Sodium 112 MCG TAB PO SCH (06:23)
[2019-03-30] MEDS: NS 0.9% w/ 20 MEQ KCL 1,000 ML/1,000 ML BAG IV SCH ×3 (08:51→22:55)
[2019-03-30] MEDS ORDERED: Non-Formulary Item 1 EACH (Levothyroxine Sodium [Synthroid] 1 TAB) PO SCH (09:00)
[2019-03-30] MEDS: Hydrochlorothiazide 25 MG TAB PO SCH (10:21)
[2019-03-30] MEDS: Tamsulosin HCl 0.4 MG CAP PO SCH (10:22)
[2019-03-30] MEDS: Metoprolol Tartrate 50 MG TAB PO SCH ×2 (10:22→21:01)
[2019-03-30] MEDS: Morphine 2 MG/ML SYRINGE SLOW IVP PRN ×4 (10:23→22:55)
[2019-03-30] MEDS: traMADol HCl 50 MG TAB PO PRN (12:57)
[2019-03-30] MEDS ORDERED: Flecainide 50 MG TAB PO SCH (13:15)
[2019-03-30] MEDS ORDERED: Enoxaparin Sodium 60 MG/0.6 ML SYRINGE SC SCH (13:15)
--- NOTE | 2019-03-30 14:24 | PDOC.HOSPP ---
- Subjective Encounter Date: 03/30/19 Encounter Time: 10:00 Subjective: overnight, entered into afib w/ RVR HR in 140s and started on beta kendra and anticoagulation. Pending cardio eval. This morning, feels well with exception of pain in area of stent placement. Otherwise no complaints. Denies fatigue, chest pain, palpitations, dyspnea. - Objective Vital Signs & Weight: Vital Signs (12 hours) Temp Pulse Resp BP Pulse Ox 03/30/19 11:00 97.4 F L 03/30/19 08:00 97 03/30/19 07:00 97 F L 03/30/19 03:50 96 03/30/19 03:40 97.7 F 03/30/19 03:00 60 18 111/57 L 96 Weight Weight 159 lb 6.4 oz Most Recent Monitor Data Heart Rate from ECG 70 NIBP 129/74 NIBP BP-Mean 92 Respiration from ECG 21 SpO2 91 I&O: 03/29/19 03/30/19 03/31/19 06:59 06:59 06:59 Intake Total 1060 Output Total 400 720 Balance -400 340 Result Diagrams: 03/29/19 04:19 03/29/19 04:19 Hospitalist ROS - Review of Systems Constitutional: denies: fever, chills, sweats, weakness, malaise, other Respiratory: denies: cough, dry, shortness of breath, hemoptysis, SOB with excertion, pleuritic pain, sputum, wheezing, other Cardiovascular: denies: chest pain, palpitations, orthopnea, paroxysmal noc. dyspnea, edema, light headedness, other Gastrointestinal: reports: abdominal pain. denies: nausea, vomiting, diarrhea, constipation, melena, hematochezia, other Genitourinary: reports: hematuria Musculoskeletal: reports: back pain Neurological: denies: weakness, numbness, incoordination, change in speech, confusion, seizures, other - Medication Medications: Active Medications Generic Name Dose Route Start Last Admin Trade Name Freq PRN Reason Stop Dose Admin Amitriptyline HCl 25 mg 03/29/19 21:00 03/29/19 21:57 Elavil PO 25 mg QPM ISABEL Administration Citalopram Hydrobromide 20 mg 03/29/19 21:00 03/29/19 21:57 Celexa PO 20 mg HS ISABEL Administration Hydrochlorothiazide 25 mg 03/30/19 09:00 03/30/19 10:21 Hydrochlorothiazide PO 25 mg DAILY ISABEL Administration Potassium Chloride/Sodium Chloride 1,000 ml in 1,000 mls @ 100 mls/hr 01:15 03/30/19 08:51 Ns 0.9% W/ 20 Meq Kcl IV Not Given .Q10H ISABEL Piperacillin Sod/Tazobactam 100 mls @ 200 mls/hr 03/29/19 02:00 03/30/19 10: 25 Sod 3.375 gm/ Sodium Chloride IVPB 100 mls 0200,0800,1400,2000 ISABEL Administration Levothyroxine Sodium 112 mcg 03/30/19 06:00 03/30/19 06:23 Synthroid PO 112 mcg 0600 ISABEL Administration Levothyroxine Sodium 25 mcg 03/30/19 06:00 03/30/19 06:23 Synthroid PO 25 mcg 0600 ISABEL Administration Metoprolol Tartrate 50 mg 03/29/19 21:00 03/30/19 10:22 Lopressor PO 50 mg BID ISABEL Administration Morphine Sulfate 2 mg 03/29/19 10:01 03/30/19 10:23 Morphine SLOW IVP 2 mg Q4H PRN Administration Pain Pantoprazole Sodium 40 mg 03/29/19 09:00 03/30/19 10:22 Protonix PO 40 mg DAILY ISABEL Administration Rosuvastatin Calcium 5 mg 03/29/19 21:00 03/29/19 21:56 Crestor PO 5 mg QPM ISABEL Administration Tamsulosin HCl 0.4 mg 03/30/19 09:00 03/30/19 10:22 Flomax PO 0.4 mg DAILY ISABEL Administration Tizanidine HCl 4 mg 03/29/19 21:00 03/29/19 21:55 Zanaflex PO 4 mg HS ISABEL Administration Tramadol HCl 50 mg 03/29/19 01:10 03/30/19 12:57 Ultram PO 50 mg Q4H PRN Administration Moderate Pain (4-6) - Exam General Appearance: NAD, awake alert Eye: PERRL ENT: normocephalic atraumatic, moist mucosa Neck: no JVD Heart: no murmur, no gallops Heart - other findings: irregularly irregular rhythm. normal rate Respiratory: CTAB, no wheezes, no rales, no ronchi, normal chest expansion, no tachypnea Gastrointestinal: soft, non-distended, normal bowel sounds Gastrointestinal - other findings: mild/moderate right abodminal tenderness Extremities: no edema Neurological: cranial nerve grossly intact Musculoskeletal: normal tone, normal strength Psychiatric: normal affect, normal behavior, A&O x 3 Hosp A/P - Plan #recurrent renal calculi #ureteral stone s/p proximal ureteral stent placement -toth draining concentrated urine -pain moderately well controlled -urology onboard #postoperative atrial fibrillation after noncardiac operation -started on anticoag and beta blockers -usually self resolving; if resolves within 48 hours, may not need continued treatment\ -Echo unremarkable -pending cardiology recommendation Plan: -if necessary, provide additional dose of pain medication; continue tamsulosin and amitriptyline (anticholinergic effects) -continue lovenox and metoprolol pending cardiology recs -stop Abx since patient had no UTI prior to procedure; if develops new symptoms of signs of sepsis, restart Abx
[2019-03-30] MEDS ORDERED: Enoxaparin Sodium 80 MG/0.8 ML SYRINGE SC SCH (17:00)
--- NOTE | 2019-03-30 18:16 | CON ---
DATE OF CONSULTATION: 03/30/2019 INDICATION FOR CONSULTATION: A 74-year-old female, who is status post a ureteral stone extraction on, I believe the catheter was placed due to hydronephrosis and percutaneously and then, she developed atrial fibrillation postprocedure or during the procedure. We were asked to see her due to the atrial fibrillation. She had no previous cardiac history. No history of atrial fibrillation in the past. She does have hypertension as well as hypercholesterolemia, which has been under good control. She denied any history of significant chest pain or any chest pain would be indicative of coronary artery disease. She has had no family history of early heart disease. She does not smoke. Her EKG on admission apparently was in sinus rhythm. According to the anesthesiologist, perhaps a rhythm strip, but there was no preop EKG performed. There was one postoperatively, which did show atrial fibrillation with rapid ventricular response. Heart rates in the 112 to 115 range. There were no significant EKG changes that would indicate ischemia. Previously, she has been given beta blockers and heart rate in the 70s and 80s now under good control with her atrial fibrillation appears that she has been in atrial fibrillation for less than 24 hours. She also thought she has medications for hypothyroidism and does not appear to be hyperthyroid. Those laboratory data will also be requested. PAST MEDICAL HISTORY: Significant for transverse myelitis in 2010. She also had a right hip fracture in 2010. She had renal surgery, I believe for a kidney stone also in 2010. She has had a facial fractures and was troubled by a horse also around 2018. In 1999, she had the problems, which started with the thyroid. She also says that she still continues to have some right leg weakness after the transverse myelitis. She is incontinent with bladder and colon. FAMILY HISTORY: Noncontributory. SOCIAL HISTORY: No history of significant alcohol or tobacco abuse. She is . REVIEW OF SYSTEMS: A 12-point review of systems is unremarkable except for what was noted in the history of present illness. MEDICATIONS: Prior to admission included; 1. Aspirin. 2. Amlodipine. 3. Baclofen. 4. Cetirizine. PHYSICAL EXAMINATION: GENERAL: Reveals a well-developed, well-nourished female. She is in no acute distress at this time. VITAL SIGNS: Blood pressure 129/74, heart rate in the 70s and is irregular, and respiratory rate is about 18. She is afebrile. HEENT: Shows head to be normocephalic and atraumatic. NECK: Carotid pulses are present. I did not hear any bruits. CHEST: Clear to auscultation without rales, rhonchi, or wheezing. CARDIOVASCULAR: Reveals an irregular rhythm. There were no significant murmurs, heaves, thrills, bruits, or rubs noted. ABDOMEN: Soft and nontender. Positive bowel sounds are present. A right percutaneous tube, which for her hydronephrosis is present and appears to be draining. EXTREMITIES: Showed no clubbing, cyanosis, or edema. Pedal pulses are present. NEUROLOGIC: She does appear to have some right-sided weakness, but otherwise is relatively stable. Mentally, there were no abnormalities noted. PSYCHOSOCIAL: She appears to be stable. She does have some history of depression. LABORATORY DATA: Please refer the notes already dictated. Renal function appeared to be normal. Enzymes are negative for myocardial infarction. We will check a thyroid function. EKG shows atrial fibrillation with a better controlled rate at this time, but was up to one teens. IMPRESSION AND PLAN: 1. New onset atrial fibrillation, which most likely is due to the stress associated with her renal problems and the anesthesia. She may certainly have underlying coronary artery disease, which will need to be evaluated, but can be done so in the future, since there were no significant EKG changes. Also, since she has been less than 24 hours, we will still give a dose of Lovenox and start her on p.o. flecainide to see if we can convert her back to a sinus rhythm. If she cannot be converted to sinus rhythm within the next 48 hours, then I would suggest we consider electrical cardioversion of the atrial fibrillation. After discussion with the urologist, he explains that she is actually not in any significant risk of bleeding, but will need some further surgical procedures in the near future within the next 1 to 2 weeks probably, so hope we will be able to get her off the anticoagulation. 2. Hypertension. This is under good control at this time. 3. Hypercholesterolemia. We would suggest she continue her medications. We are more than happy to continue to follow the patient with you. She did have an echocardiogram, which showed mild tricuspid valve regurgitation. Ejection fraction was 55% to 60%. Left atrium was mildly dilated at 4.4 cm with mild mitral annular calcifications, but otherwise was relatively unremarkable. Job ID: [id number]
[2019-03-30] MEDS: Flecainide 50 MG TAB PO SCH (21:01)
[2019-03-30] MEDS: Rosuvastatin 10 MG TAB PO SCH (21:01)
[2019-03-30] MEDS: tiZANidine HCl 4 MG TAB PO SCH (21:01)
[2019-03-30] MEDS: Citalopram 20 MG TAB PO SCH (21:01)
[2019-03-30] MEDS: Amitriptyline HCl 25 MG TAB PO SCH (21:01)
[2019-03-31 05:13] LABS: #Eosinphils 0.1 thou/uL (0.0-0.7); #Lymphocytes 1.9 thou/uL (1.20-3.40); #Monocytes 0.5 thou/uL (0.11-0.59); #Neutrophils 4.3 thou/uL (1.40-6.50); %Basophils 0.4 % (0.0-1.0); %Lymphocytes 27.8 % (21.0-51.0); %Monocytes 7.6 % (0.0-10.0); %Neutrophils 62.3 % (42.0-75.0); Hemoglobin 9.9 g/dL (12.0-16.0); Mean Corpuscular Hemoglobin 32.6 pg (27.0-31.0); Mean Corpuscular Volume 93.2 fL (78.0-98.0); Mean Platelet Volume 7.5 fL (7.4-10.4); Platelet Count 163 thou/uL (130-400); RBC Distribution Width 11.7 % (11.5-14.5); Red Blood Cell (RBC) Count 3.03 mill/uL (4.20-5.40); White Blood Cell (WBC) Count 6.8 thou/uL (4.8-10.8)
[2019-03-31 05:30] LABS: Anion Gap 11 mmol/L (10-20); BUN (Urea Nitrogen) 18 mg/dL (9.8-20.1); Calc. Creatinine Clearance 75 mL/min (70-130); Calcium 8.7 mg/dL (7.8-10.44); Carbon Dioxide 23 mmol/L (23-31); Chloride 108 mmol/L (98-107); Estimated GFR-MDRD 77; Glucose 107 mg/dL (83-110); Magnesium 1.5 mg/dL (1.6-2.6); Potassium 3.8 mmol/L (3.5-5.1); Sodium 138 mmol/L (136-145)
[2019-03-31] MEDS: Levothyroxine Sodium 112 MCG TAB PO SCH (06:06)
[2019-03-31] MEDS: Levothyroxine Sodium 25 MCG TAB PO SCH (06:07)
--- NOTE | 2019-03-31 07:52 | PDOC.CPN ---
- Subjective Date: 03/31/19 Time: 08:00 Interval history: The pt seen and examined. No overnight events. No Cardiac complaints. - Objective Allergies/Adverse Reactions: Allergies Allergy/AdvReac Type Severity Reaction Status Date / Time codeine Allergy Rash Verified 03/29/19 01:06 Tetanus Vaccines and Toxoid Allergy lock jaw Verified 03/29/19 01:06 Visit Medications: Current Medications Acetaminophen (Tylenol) 650 mg PO Q4H PRN PRN Reason: Headache/Fever/Mild Pain (1-3) Amitriptyline HCl (Elavil) 25 mg PO QPM [facility] Last Admin: 03/30/19 21:01 Dose: 25 mg Calcium Carbonate (Tums) 1,000 mg PO Q4H PRN PRN Reason: Heartburn or Indigestion Citalopram Hydrobromide (Celexa) 20 mg PO HS [facility] Last Admin: 03/30/19 21:01 Dose: 20 mg Enoxaparin Sodium (Lovenox) 70 mg SC 0900,2100 ISABEL Flecainide Acetate (Tambocor) 50 mg PO 0900,2200 [facility] Last Admin: 03/30/19 21:01 Dose: 50 mg Hydrochlorothiazide (Hydrochlorothiazide) 25 mg PO DAILY [facility] Last Admin: 03/30/19 10:21 Dose: 25 mg Potassium Chloride/Sodium Chloride (Ns 0.9% W/ 20 Meq Kcl) 1,000 ml in 1,000 mls @ 100 mls/hr IV .Q10H [facility] Last Admin: 03/30/19 22:55 Dose: 1,000 mls Magnesium Sulfate 2 gm/ Device 50 mls @ 50 mls/hr IVPB NOW [facility] Stop: 03/31/19 12:00 Levothyroxine Sodium (Synthroid) 112 mcg PO 0600 [facility] Last Admin: 03/31/19 06:06 Dose: 112 mcg Levothyroxine Sodium (Synthroid) 25 mcg PO 0600 [facility] Last Admin: 03/31/19 06:07 Dose: 25 mcg Metoprolol Tartrate (Lopressor) 50 mg PO BID [facility] Last Admin: 03/30/19 21:01 Dose: 50 mg Miscellaneous Medication (Pharmacy To Dose) 1 each IVPB PRN PRN PRN Reason: Pharmacy to dose Morphine Sulfate (Morphine) 2 mg SLOW IVP Q4H PRN PRN Reason: Pain Last Admin: 03/30/19 22:55 Dose: 2 mg Pantoprazole Sodium (Protonix) 40 mg PO DAILY [facility] Last Admin: 03/30/19 10:22 Dose: 40 mg Rosuvastatin Calcium (Crestor) 5 mg PO QPM [facility] Last Admin: 03/30/19 21:01 Dose: 5 mg Senna/Docusate Sodium (Senokot S) 2 tab PO BID PRN PRN Reason: Constipation Sodium Chloride (Flush - Normal Saline) 10 ml IVF PRN PRN PRN Reason: Saline Flush Tamsulosin HCl (Flomax) 0.4 mg PO DAILY [facility] Last Admin: 03/30/19 10:22 Dose: 0.4 mg Tizanidine HCl (Zanaflex) 4 mg PO HS [facility] Last Admin: 03/30/19 21:01 Dose: 4 mg Tramadol HCl (Ultram) 50 mg PO Q4H PRN PRN Reason: Moderate Pain (4-6) Last Admin: 03/30/19 12:57 Dose: 50 mg Vital Signs & Weight: Vital Signs Temp Pulse Resp BP Pulse Ox 03/31/19 03:56 98.1 F 65 16 102/56 L 96 03/30/19 20:00 98.6 F 87 16 127/86 96 Weight 159 lb 6.4 oz - Physical Exam General: alert & oriented x3 HEENT: mucus membranes moist Neck: supple neck Cardiac: regular rate and rhythm, irregularly regular Lungs: clear to auscultation Neuro: cranial nerve 2-12 intact - Labs Result Diagrams: 03/31/19 04:40 03/31/19 04:40 - Telemetry Supraventricular conduction: atrial fibrillation - Assessment/Plan Assessment/Plan: 1. P/o Afib with RVR - still in Afib well controlled HR after 2 doses of Flecainide; she will receive 3rd dose of Flecainide this AM; Possible DCCV tomorrow is cont. Afib. 2. Recurrent renal calculi with s/p proximal ureteral stent placement on 2019 3. HTN - stable 4. HLD - on Statin 5. Hypothyroidism 6. Transverse myelitis in 2010 MAR reviewed * Echo on 03/30/2019 with EF 55-60%, mild TR and trace MR pt. seen and eval. by me. I agree with the A/P by the PR INTERN. Discussed cardioversion with te pt. Plan for cardioversion in AM is she is still in Afib. tomorrow. Chest clear. Irreg/irreg. No edema. joe
[2019-03-31] MEDS ORDERED: Magnesium 2 GM/50 ML 2 GM in Premix Bag 1 BAG IVPB SCH (08:00)
[2019-03-31] MEDS: Enoxaparin Sodium 80 MG/0.8 ML SYRINGE SC SCH ×2 (09:09→20:53)
[2019-03-31] MEDS: Flecainide 50 MG TAB PO SCH ×2 (09:09→20:52)
[2019-03-31] MEDS: Hydrochlorothiazide 25 MG TAB PO SCH (09:09)
[2019-03-31] MEDS: NS 0.9% w/ 20 MEQ KCL 1,000 ML/1,000 ML BAG IV SCH (09:10)
[2019-03-31] MEDS: Tamsulosin HCl 0.4 MG CAP PO SCH (09:10)
[2019-03-31] MEDS: Metoprolol Tartrate 50 MG TAB PO SCH ×2 (09:10→20:53)
[2019-03-31] MEDS ORDERED: Magnesium Oxide 400 MG TAB PO SCH (09:45)
[2019-03-31] MEDS: Morphine 2 MG/ML SYRINGE SLOW IVP PRN ×2 (10:11→18:06)
[2019-03-31] MEDS: Sodium Chloride 0.9% 1,000 ML IV SCH ×2 (12:19→23:01)
[2019-03-31] MEDS ORDERED: Ondansetron ODT 4 MG TAB PO PRN (17:23)
[2019-03-31] MEDS: traMADol HCl 50 MG TAB PO PRN (20:52)
[2019-03-31] MEDS: Citalopram 20 MG TAB PO SCH (20:53)
[2019-03-31] MEDS: tiZANidine HCl 4 MG TAB PO SCH (20:53)
[2019-03-31] MEDS: Rosuvastatin 10 MG TAB PO SCH (20:53)
[2019-03-31] MEDS: Amitriptyline HCl 25 MG TAB PO SCH (20:53)
--- NOTE | 2019-03-31 23:32 | PDOC.HOSPP ---
- Subjective Encounter Date: 03/31/19 Encounter Time: 10:00 Subjective: no overnight events. This morning, patient tearful and complains about upper thorax pain that changes with position and palpation. Also endorses episodes of difficulty breathing. Remains in afib with well controlled rate. Pending cardioversion 04/01/2019 10:30 if remains afib. - Objective Vital Signs & Weight: Vital Signs (12 hours) Temp Pulse Resp BP Pulse Ox 03/31/19 15:49 97.9 F 72 14 137/74 93 L 03/31/19 13:13 95 03/31/19 12:11 97.9 F 69 16 132/73 95 Weight Weight 159 lb 6.4 oz Most Recent Monitor Data Heart Rate from ECG 76 NIBP 121/75 NIBP BP-Mean 90 Respiration from ECG 21 SpO2 93 I&O: 03/30/19 03/31/19 04/01/19 06:59 06:59 06:59 Intake Total 1060 3690 1720 Output Total 720 2450 Balance 340 1240 1720 Result Diagrams: 03/31/19 04:40 03/31/19 04:40 Hospitalist ROS - Review of Systems Constitutional: denies: fever, chills, sweats, weakness, malaise, other Respiratory: reports: shortness of breath, SOB with excertion, pleuritic pain. denies: cough, sputum, wheezing Cardiovascular: reports: chest pain. denies: palpitations, orthopnea, paroxysmal noc. dyspnea, edema, light headedness Gastrointestinal: denies: nausea, vomiting, abdominal pain, diarrhea, constipation Genitourinary: reports: other (no flank pain, improved compared to yesterday). denies: hematuria Neurological: reports: weakness - Medication Medications: Active Medications Generic Name Dose Route Start Last Admin Trade Name Freq PRN Reason Stop Dose Admin Amitriptyline HCl 25 mg 03/29/19 21:00 03/31/19 20:53 Elavil PO 25 mg QPM ISABEL Administration Citalopram Hydrobromide 20 mg 03/29/19 21:00 03/31/19 20:53 Celexa PO 20 mg HS ISABEL Administration Enoxaparin Sodium 70 mg 03/31/19 09:00 03/31/19 20:53 Lovenox SC 70 mg 0900,2100 ISABEL Administration Flecainide Acetate 50 mg 03/30/19:00 03/31/19 20:52 Tambocor PO 50 mg 0900,2200 ISABEL Administration Hydrochlorothiazide 25 mg 03/30/19 09:00 03/31/19 09:09 Hydrochlorothiazide PO 25 mg DAILY ISABEL Administration Sodium Chloride 1,000 mls @ 100 mls/hr 03/31/19 10:15 03/31/19 23:01 Normal Saline 0.9% IV 1,000 mls .Q10H ISABEL Administration Levothyroxine Sodium 112 mcg 03/30/19 06:00 03/31/19 06:06 Synthroid PO 112 mcg 0600 ISABEL Administration Levothyroxine Sodium 25 mcg 03/30/19 06:00 03/31/19 06:07 Synthroid PO 25 mcg 0600 ISABEL Administration Metoprolol Tartrate 50 mg 03/29/19 21:00 03/31/19 20:53 Lopressor PO 50 mg BID ISABEL Administration Morphine Sulfate 2 mg 03/29/19 10:01 03/31/19 18:06 Morphine SLOW IVP 2 mg Q4H PRN Administration Pain Ondansetron HCl 4 mg 03/31/19 17:23 03/31/19 18:03 Zofran Odt PO 4 mg Q6H PRN Administration Nausea/Vomiting Pantoprazole Sodium 40 mg 03/29/19 09:00 03/31/19 09:10 Protonix PO 40 mg DAILY ISABEL Administration Rosuvastatin Calcium 5 mg 03/29/19 21:00 03/31/19 20:53 Crestor PO 5 mg QPM ISABEL Administration Tamsulosin HCl 0.4 mg 03/30/19 09:00 03/31/19 09:10 Flomax PO 0.4 mg DAILY ISABEL Administration Tizanidine HCl 4 mg 03/29/19 21:00 03/31/19 20:53 Zanaflex PO 4 mg HS ISABEL Administration Tramadol HCl 50 mg 03/29/19 01:10 03/31/19 20:52 Ultram PO 50 mg Q4H PRN Administration Moderate Pain (4-6) - Exam General - other findings: anxious, tearful Neck: no JVD Heart: no murmur, no gallops Heart - other findings: irregularly irregular, rate 60-70s Respiratory: CTAB, no wheezes, no rales, no ronchi, normal chest expansion, no tachypnea Respiratory - other findings: satting 92% on RA Gastrointestinal: soft, non-tender, non-distended, normal bowel sounds, no bruit Extremities: no edema Musculoskeletal: normal tone, normal strength Psychiatric: A&O x 3 Hosp A/P - Plan #recurrent renal calculi #ureteral stone s/p proximal ureteral stent placement -pain well controlled -urology onboard #postoperative atrial fibrillation after noncardiac operation -started on anticoag and beta blockers (CHADSVASC 4) -usually self resolving; if resolves within 48 hours, may not need continued treatment -Echo unremarkable -per cardiology, if doesn't resolve by tomorrow, conversion at 10:30am; appreciated recs Plan: -continue tamsulosin and amitriptyline (anticholinergic effects) -continue lovenox and metoprolol
[2019-04-01 05:09] LABS: #Eosinphils 0.2 thou/uL (0.0-0.7); #Lymphocytes 1.7 thou/uL (1.20-3.40); #Monocytes 0.5 thou/uL (0.11-0.59); #Neutrophils 4.1 thou/uL (1.40-6.50); %Basophils 0.3 % (0.0-1.0); %Eosinophils 2.3 % (0.0-10.0); %Lymphocytes 26.1 % (21.0-51.0); %Monocytes 8.1 % (0.0-10.0); %Neutrophils 63.2 % (42.0-75.0); Hemoglobin 10.8 g/dL (12.0-16.0); Mean Corpuscular Hemoglobin 31.7 pg (27.0-31.0); Mean Corpuscular Volume 93.3 fL (78.0-98.0); Mean Platelet Volume 7.5 fL (7.4-10.4); Platelet Count 192 thou/uL (130-400); RBC Distribution Width 11.8 % (11.5-14.5); White Blood Cell (WBC) Count 6.5 thou/uL (4.8-10.8)
[2019-04-01] MEDS: Levothyroxine Sodium 112 MCG TAB PO SCH (05:30)
[2019-04-01] MEDS: Levothyroxine Sodium 25 MCG TAB PO SCH (05:30)
[2019-04-01 05:32] LABS: Anion Gap 11 mmol/L (10-20); BUN (Urea Nitrogen) 15 mg/dL (9.8-20.1); Calc. Creatinine Clearance 76 mL/min (70-130); Calcium 9.2 mg/dL (7.8-10.44); Carbon Dioxide 25 mmol/L (23-31); Chloride 106 mmol/L (98-107); Estimated GFR-MDRD 78; Glucose 98 mg/dL (83-110); Magnesium 1.8 mg/dL (1.6-2.6); Potassium 3.5 mmol/L (3.5-5.1); Sodium 138 mmol/L (136-145)
--- NOTE | 2019-04-01 08:04 | PDOC.CPN ---
- Subjective Date: 04/01/19 Time: 08:04 Interval history: The pt seen and examined. No overnight events. She complains of worsening of fatigue, SOB and chest pressure for last 2 days. - Objective Allergies/Adverse Reactions: Allergies Allergy/AdvReac Type Severity Reaction Status Date / Time codeine Allergy Rash Verified 03/29/19 01:06 Tetanus Vaccines and Toxoid Allergy lock jaw Verified 03/29/19 01:06 Visit Medications: Current Medications Acetaminophen (Tylenol) 650 mg PO Q4H PRN PRN Reason: Headache/Fever/Mild Pain (1-3) Amitriptyline HCl (Elavil) 25 mg PO QPM REPLACED BY [facility] Last Admin: 03/31/19 20:53 Dose: 25 mg Calcium Carbonate (Tums) 1,000 mg PO Q4H PRN PRN Reason: Heartburn or Indigestion Citalopram Hydrobromide (Celexa) 20 mg PO HS REPLACED BY [facility] Last Admin: 03/31/19 20:53 Dose: 20 mg Enoxaparin Sodium (Lovenox) 70 mg SC 0900,2100 REPLACED BY [facility] Last Admin: 03/31/19 20:53 Dose: 70 mg Flecainide Acetate (Tambocor) 50 mg PO 0900,2200 REPLACED BY [facility] Last Admin: 03/31/19 20:52 Dose: 50 mg Hydrochlorothiazide (Hydrochlorothiazide) 25 mg PO DAILY REPLACED BY [facility] Last Admin: 03/31/19 09:09 Dose: 25 mg Sodium Chloride (Normal Saline 0.9%) 1,000 mls @ 100 mls/hr IV .Q10H REPLACED BY [facility] Last Admin: 03/31/19 23:01 Dose: 1,000 mls Levothyroxine Sodium (Synthroid) 112 mcg PO 0600 REPLACED BY [facility] Last Admin: 04/01/19 05:30 Dose: 112 mcg Levothyroxine Sodium (Synthroid) 25 mcg PO 0600 REPLACED BY [facility] Last Admin: 04/01/19 05:30 Dose: 25 mcg Magnesium Oxide (Magnesium Oxide) 400 mg PO DAILY REPLACED BY [facility] Metoprolol Tartrate (Lopressor) 50 mg PO BID REPLACED BY [facility] Last Admin: 03/31/19 20:53 Dose: 50 mg Morphine Sulfate (Morphine) 2 mg SLOW IVP Q4H PRN PRN Reason: Pain Last Admin: 03/31/19 18:06 Dose: 2 mg Ondansetron HCl (Zofran Odt) 4 mg PO Q6H PRN PRN Reason: Nausea/Vomiting Last Admin: 03/31/19 18:03 Dose: 4 mg Pantoprazole Sodium (Protonix) 40 mg PO DAILY REPLACED BY [facility] Last Admin: 03/31/19 09:10 Dose: 40 mg Rosuvastatin Calcium (Crestor) 5 mg PO QPM REPLACED BY [facility] Last Admin: 03/31/19 20:53 Dose: 5 mg Senna/Docusate Sodium (Senokot S) 2 tab PO BID PRN PRN Reason: Constipation Sodium Chloride (Flush - Normal Saline) 10 ml IVF PRN PRN PRN Reason: Saline Flush Tamsulosin HCl (Flomax) 0.4 mg PO DAILY REPLACED BY [facility] Last Admin: 03/31/19 09:10 Dose: 0.4 mg Tizanidine HCl (Zanaflex) 4 mg PO HS REPLACED BY [facility] Last Admin: 03/31/19 20:53 Dose: 4 mg Tramadol HCl (Ultram) 50 mg PO Q4H PRN PRN Reason: Moderate Pain (4-6) Last Admin: 03/31/19 20:52 Dose: 50 mg Vital Signs & Weight: Vital Signs Temp Pulse Resp BP Pulse Ox 04/01/19 04:00 97.8 F 65 18 134/61 95 Weight 159 lb 6.4 oz - Physical Exam General: alert & oriented x3 HEENT: mucus membranes moist Neck: supple neck Cardiac: regular rate and rhythm, S1/S2 Lungs: clear to auscultation Neuro: cranial nerve 2-12 intact - Labs Result Diagrams: 04/01/19 04:33 04/01/19 04:33 - Telemetry Sinus rhythms and dysrhythmias: sinus rhythm - Assessment/Plan Assessment/Plan: 1. P/o Afib with RVR - Converted back to SR around 2230 on 03/31/2019; on Flecainide 50mg BID and Lovenox, which will be changed to Eliquis 5mg BID. 2. Recurrent renal calculi with s/p proximal ureteral stent placement on 2019 3. HTN - stable 4. HLD - on Statin 5. Hypothyroidism 6. Transverse myelitis in 2010 7. Chest pressure for 2 days - stress test today; MAR reviewed * Echo on 03/30/2019 with EF 55-60%, mild TR and trace MR * The pt can be d/kristy home from Cardiac standpoint if stress test is normal. The pt will f/u with Dr Green' office in 2 wks. Pt. seen and eval. by me. I agree with the A/P by the [employer]. The echo indicates a nl. EF. The stress test is negative for ischemia. She has converted to NSR. Continue Flecainide and eliquis for a month. Hold the eliquis for the urological procedure 24-48hrs. prior to the procedure then resume when no risk of significant bleeding. Ok to d/c from a cardia standpoint. jerry
--- NOTE | 2019-04-01 08:28 | PRG ---
DATE OF SERVICE: 04/01/2019 She is afebrile. Vital signs are stable. She is feeling well. The stone is not bothering her. Apparently, she went back into normal sinus rhythm last night. She has been urinating okay since the discontinuation of the Pittman. Her labs are normal. Creatinine is stable. Microbiology shows blood cultures negative and final urine culture negative. She has a stent in and her pain is significantly improved. We will look at treating her stone probably next week. If she can stay off blood thinners, including aspirin and nonsteroidals then we could conceivably do shockwave next week if her platelet function assay is normal. If not, we would probably have to do ureteroscopic procedure. I will contact her on Friday and we will see how she is doing. I assume she should be home by then and see what medicine she goes home on. I will be away tomorrow. I do not think she will need a urologist to see her; however, if anything change regarding her, contact whatever urologist is hydrogenation operator for the emergency consult tomorrow. Job ID: [id number]
[2019-04-01] MEDS: Magnesium Oxide 400 MG TAB PO SCH (09:40)
[2019-04-01] MEDS: Flecainide 50 MG TAB PO SCH ×2 (09:40→21:43)
[2019-04-01] MEDS: Hydrochlorothiazide 25 MG TAB PO SCH (09:40)
[2019-04-01] MEDS: Tamsulosin HCl 0.4 MG CAP PO SCH (09:40)
[2019-04-01] MEDS: Sodium Chloride 0.9% 1,000 ML IV SCH ×2 (09:40→18:01)
[2019-04-01] MEDS: Enoxaparin Sodium 80 MG/0.8 ML SYRINGE SC SCH ×2 (09:41→20:05)
[2019-04-01] MEDS ORDERED: Potassium Chloride 20 MEQ TAB PO SCH (09:45)
--- NOTE | 2019-04-01 13:58 | NM ---
EXAM: Nuclear Medicine Cardiac SPECT with EF and wall motion: HISTORY: Chest pain Protocol: Exam was performed using adenosine protocol. The patient is injected with 28.6 millicuries of technetium 99m sestamibi intravenously for stress im ages. The patient is injected with 9.2 millicuries of technetium 99 sestamibi intravenously for resting sunita ges. Multiple SPECT images are performed in the short axis, vertical long axis, and horizontal long axis. FINDINGS: No scan evidence for infarct or ischemia. TID:1.15 LHR:0.38 EDV:74 mL EF:64% Wall motion:Normal IMPRESSION: Normal cardiac SPECT with EF and wall motion
[2019-04-01] MEDS: Metoprolol Tartrate 50 MG TAB PO SCH ×2 (14:09→20:06)
[2019-04-01] MEDS ORDERED: ADENOSINE 60 MG/20 ML VIAL ONE (16:10)
[2019-04-01] MEDS: Morphine 2 MG/ML SYRINGE SLOW IVP PRN (17:58)
[2019-04-01] MEDS: Vancomycin HCl 25 MG/ML Oral PO SCH ×2 (19:18→23:24)
[2019-04-01] MEDS: tiZANidine HCl 4 MG TAB PO SCH (20:05)
[2019-04-01] MEDS: Rosuvastatin 10 MG TAB PO SCH (20:05)
[2019-04-01] MEDS: Citalopram 20 MG TAB PO SCH (20:06)
[2019-04-01] MEDS: Amitriptyline HCl 25 MG TAB PO SCH (20:06)
--- NOTE | 2019-04-01 23:49 | PDOC.HOSPP ---
- Subjective Encounter Date: 04/01/19 Encounter Time: 08:00 Subjective: overnight, converted to sinus. This morning, feels well and upper thorax pain resolved. Still has sensation of heaviness in mid thorax. Pending stress test. - Objective Vital Signs & Weight: Vital Signs (12 hours) Temp Pulse Resp BP Pulse Ox 04/01/19 20:00 98.5 F 68 16 124/93 H 94 L 04/01/19 16:00 98.6 F 68 16 152/69 H 90 L 04/01/19 14:45 175/82 H 04/01/19 14:00 98.5 F 77 16 182/94 H 93 L Weight Weight 159 lb 6.4 oz Most Recent Monitor Data Heart Rate from ECG 76 NIBP 121/75 NIBP BP-Mean 90 Respiration from ECG 21 SpO2 93 I&O: 03/31/19 04/01/19 04/02/19 06:59 06:59 06:59 Intake Total 3690 3220 890 Output Total 2450 Balance 1240 3220 890 Result Diagrams: 04/01/19 04:33 04/01/19 04:33 Hospitalist ROS - Review of Systems Respiratory: denies: cough, dry, shortness of breath, hemoptysis, SOB with excertion, pleuritic pain, sputum, wheezing, other Cardiovascular: denies: chest pain, palpitations, orthopnea, paroxysmal noc. dyspnea, edema, light headedness, other Gastrointestinal: denies: nausea, vomiting, abdominal pain, diarrhea, constipation, melena, hematochezia, other Genitourinary: denies: hematuria Skin: denies: rash, lesions, lauren, bruising, other Neurological: denies: weakness, numbness, incoordination, change in speech, confusion, seizures, other - Medication Medications: Active Medications Generic Name Dose Route Start Last Admin Trade Name Freq PRN Reason Stop Dose Admin Amitriptyline HCl 25 mg 03/29/19 21:00 04/01/19 20:06 Elavil PO 25 mg QPM ISABEL Administration Citalopram Hydrobromide 20 mg 03/29/19 21:00 04/01/19 20:06 Celexa PO 20 mg HS ISAEBL Administration Enoxaparin Sodium 70 mg 03/31/19 09:00 04/01/19 20:05 Lovenox SC 70 mg 0900,2100 ISABEL Administration Flecainide Acetate 50 mg 03/30/19 22:00 04/01/19 21:43 Tambocor PO 50 mg 09,0 ISABEL Administration Hydrochlorothiazide 25 mg 03/30/19 09:00 04/01/19 09:40 Hydrochlorothiazide PO 25 mg DAILY ISABEL Administration Sodium Chloride 1,000 mls @ 80 mls/hr 04/01/19 18:00 04/01/19 18:01 Normal Saline 0.9% IV 1,000 mls .[id number] ISABEL Administration Levothyroxine Sodium 112 mcg 03/30/19 06:00 04/01/19 05:30 Synthroid PO 112 mcg 0600 SIABEL Administration Levothyroxine Sodium 25 mcg 03/30/19 06:00 04/01/19 05:30 Synthroid PO 25 mcg 0600 ISABEL Administration Magnesium Oxide 400 mg 04/01/19 09:00 04/01/19 09:40 Magnesium Oxide PO 400 mg DAILY ISABEL Administration Metoprolol Tartrate 50 mg 03/29/19 21:00 04/01/19 20:06 Lopressor PO 50 mg BID ISABEL Administration Morphine Sulfate 2 mg 03/29/19 10:01 04/01/19 17:58 Morphine SLOW IVP 2 mg Q4H PRN Administration Pain Ondansetron HCl 4 mg 03/31/19 17:23 03/31/19 18:03 Zofran Odt PO 4 mg Q6H PRN Administration Nausea/Vomiting Pantoprazole Sodium 40 mg 03/29/19 09:00 04/01/19 09:40 Protonix PO 40 mg DAILY ISABEL Administration Rosuvastatin Calcium 5 mg 03/29/19 21:00 04/01/19 20:05 Crestor PO 5 mg QPM ISABEL Administration Tamsulosin HCl 0.4 mg 03/30/19 09:00 04/01/19 09:40 Flomax PO 0.4 mg DAILY ISABEL Administration Tizanidine HCl 4 mg 03/29/19 21:00 04/01/19 20:05 Zanaflex PO 4 mg HS ISABEL Administration Tramadol HCl 50 mg 03/29/19 01:10 03/31/19 20:52 Ultram PO 50 mg Q4H PRN Administration Moderate Pain (4-6) Vancomycin HCl 125 mg 04/01/19 18:00 04/01/19 23:24 First Vancomycin PO Not Given Q6HR ISABEL - Exam General Appearance: NAD, awake alert Eye: PERRL ENT: normocephalic atraumatic Neck: no JVD Heart: RRR, no murmur, no gallops, no rubs Respiratory: CTAB, no wheezes, no rales, no ronchi, normal chest expansion, no tachypnea, normal percussion Gastrointestinal: soft, non-tender, non-distended, normal bowel sounds, no palpable masses, no hepatomegaly, no splenomegaly, no bruit Extremities: 1+ LE edema Extremities - other findings: pitting edema, b/l to knee level Neurological: cranial nerve grossly intact Psychiatric: normal affect, normal behavior, A&O x 3 Hosp A/P - Plan #recurrent renal calculi #ureteral stone s/p proximal ureteral stent placement -pain well controlled -urology onboard #postoperative atrial fibrillation after noncardiac operation (resolved) -started on anticoag and beta blockers (CHADSVASC 4) -Echo unremarkable -per cardiology, will undergo stress test Plan: -continue tamsulosin and amitriptyline (anticholinergic effects) -per urology, prefers if discharged without blood thinners if possible for pending procedure to treat ureteral stone (including aspirin and NSAIDS) -per cardio, requires to remain on eliquis for a month; may stop eliquis 24-48 hours prior to procedure then resume
[2019-04-02 04:37] LABS: #Eosinphils 0.1 thou/uL (0.0-0.7); #Lymphocytes 1.3 thou/uL (1.20-3.40); #Monocytes 0.5 thou/uL (0.11-0.59); #Neutrophils 2.6 thou/uL (1.40-6.50); %Basophils 0.7 % (0.0-1.0); %Monocytes 10.3 % (0.0-10.0); Hemoglobin 9.7 g/dL (12.0-16.0); Mean Corpuscular HGB CONC 34.3 g/dL (32.0-36.0); Mean Corpuscular Hemoglobin 31.7 pg (27.0-31.0); Mean Corpuscular Volume 92.3 fL (78.0-98.0); Mean Platelet Volume 7.5 fL (7.4-10.4); Platelet Count 176 thou/uL (130-400); RBC Distribution Width 11.6 % (11.5-14.5); Red Blood Cell (RBC) Count 3.04 mill/uL (4.20-5.40); White Blood Cell (WBC) Count 4.5 thou/uL (4.8-10.8)
[2019-04-02 05:07] LABS: Anion Gap 10 mmol/L (10-20); BUN (Urea Nitrogen) 13 mg/dL (9.8-20.1); Calc. Creatinine Clearance 79 mL/min (70-130); Carbon Dioxide 25 mmol/L (23-31); Chloride 105 mmol/L (98-107); Estimated GFR-MDRD 82; Glucose 89 mg/dL (83-110); Magnesium 1.6 mg/dL (1.6-2.6); Potassium 3.2 mmol/L (3.5-5.1); Sodium 137 mmol/L (136-145)
[2019-04-02] MEDS: Levothyroxine Sodium 25 MCG TAB PO SCH (05:30)
[2019-04-02] MEDS: Levothyroxine Sodium 112 MCG TAB PO SCH (05:30)
[2019-04-02] MEDS: Sodium Chloride 0.9% 1,000 ML IV SCH (05:30)
[2019-04-02] MEDS: Enoxaparin Sodium 80 MG/0.8 ML SYRINGE SC SCH (09:15)
[2019-04-02] MEDS: Flecainide 50 MG TAB PO SCH (09:17)
[2019-04-02] MEDS: Magnesium Oxide 400 MG TAB PO SCH (09:17)
[2019-04-02] MEDS: Tamsulosin HCl 0.4 MG CAP PO SCH (09:17)
[2019-04-02] MEDS: Hydrochlorothiazide 25 MG TAB PO SCH (09:17)
[2019-04-02] MEDS: Metoprolol Tartrate 50 MG TAB PO SCH (09:17)
[2019-04-02] MEDS: traMADol HCl 50 MG TAB PO PRN (10:21)
[2019-04-02 12:24] VITALS: BP 153/71; TEMP 98.7
[2019-04-02] MEDS: Morphine 2 MG/ML SYRINGE SLOW IVP PRN (13:20)
[2019-04-02] MEDS ORDERED: Potassium Chloride 20 MEQ TAB PO SCH (13:30)
[2019-04-02] MEDS ORDERED: Magnesium Chloride 64 MG TAB PO SCH (21:00)
[2019-04-03] MEDS ORDERED: Potassium Chloride 20 MEQ TAB PO SCH (08:00)
--- NOTE | 2019-04-04 01:51 | DIS ---
DATE OF ADMISSION: 03/29/2019 DATE OF DISCHARGE: 04/02/2019 HOSPITAL COURSE: Ms. Land is a 74-year-old female with a medical history of recurrent renal calculi, presented with right flank pain that was severe and persistent. Following medical management, pain did not improve, so she was taken to the OR and ureteral stent was placed. The patient tolerated the procedure well. However, she developed postoperative atrial fibrillation with RVR, rate was easily controlled. The patient's atrial fibrillation resolved within 48 hours spontaneously, so Cardiology recommended to discharge the patient on flecainide as well as anticoagulation for at least a month until the patient is seen again. On the day of discharge, the patient was in sinus rhythm, hemodynamically stable and feeling well. Pain was well controlled. PHYSICAL EXAMINATION: GENERAL: No apparent distress. Alert and oriented x3. HEART: Regular rate and rhythm. No murmurs, no gallops, no JVD. LUNGS: Clear to auscultation bilaterally. No wheezing, rales, or rhonchi. ABDOMEN: Nontender, nondistended. Normal bowel sounds. The patient had a bowel movement prior to discharge. GENITOURINARY: The patient's Pittman was taken out and the patient was urinating spontaneously. No flank pain or costovertebral tenderness. EXTREMITIES: No edema. NEUROLOGIC: Cranial nerves intact 2 through 12. No focal weakness. No new focal findings. PSYCHIATRIC: Proper mood and affect. Alert and oriented x3. ASSESSMENT AND PLAN: Ms. Land is a 74-year-old female with a medical history of recurrent renal calculi, who presented with intractable pain due to ureteral stone. She was taken into the OR and stent was placed. She tolerated the procedure well, however, developed atrial fibrillation with RVR that resolved spontaneously within 48 hours. Per Cardiology, she was started on flecainide as well as anticoagulation pending further evaluation by Urology for an additional procedure in order to address the ureteral stone. The patient received elaborate instructions regarding what to do with anticoagulation prior to surgery that is to discontinue it 48 hours prior to surgery and resume after the surgery pending outpatient appointment with Cardiology. Job ID: [id number]
== END 2019-04-02 14:45 | disposition home or self-care (01) | DRG 660 ==
LOC: ERS 20:12 → 2SW 23:30 → OBSVTOIN 03-29 10:00 → T4-A 03-29 13:38 → IMCU/EMU 03-29 21:26 → 2NO 03-30 17:09
PROVIDERS: ADMIT Internal Medicine; ATTEND Internal Medicine
PROC: 0T768DZ Dilation of Right Ureter with Intraluminal Device, Via Natural or Artificial Opening Endoscopic (ICD-10-PCS; principal; 2019-03-29)
PROC: BT1D1ZZ Fluoroscopy of Right Kidney, Ureter and Bladder using Low Osmolar Contrast (ICD-10-PCS; 2019-03-29)
DX: N13.2 Hydronephrosis with renal and ureteral calculous obstruction (principal); I97.191 Other postprocedural cardiac functional disturbances following other surgery; G37.3 Acute transverse myelitis in demyelinating disease of central nervous system; E78.5 Hyperlipidemia, unspecified; E03.9 Hypothyroidism, unspecified; M19.91 Primary osteoarthritis, unspecified site; G25.81 Restless legs syndrome; N17.9 Acute kidney failure, unspecified; I12.9 Hypertensive chronic kidney disease with stage 1 through stage 4 chronic kidney disease, or unspecified chronic kidney disease; N18.2 Chronic kidney disease, stage 2 (mild); F41.9 Anxiety disorder, unspecified; E78.00 Pure hypercholesterolemia, unspecified; Z88.5 Allergy status to narcotic agent; Z79.82 Long term (current) use of aspirin; Z90.49 Acquired absence of other specified parts of digestive tract; Z98.51 Tubal ligation status; Z88.7 Allergy status to serum and vaccine; Z79.899 Other long term (current) drug therapy; E87.6 Hypokalemia; E83.42 Hypomagnesemia; N31.9 Neuromuscular dysfunction of bladder, unspecified
CPT/HCPCS: 36415; 74176; 74420; 78452; 80048; 80053; 81003; 81015; 83735; 84443; 85025; 85576; 85610; 87040; 87086; 87324; 87449; 93005; 93010; 93017; 93306; 96361; 96365; 96374; 96375; A9500; C1758; J0153; J0696; J1100; J1650; J1885; J2001; J2270; J2405; J2543; J2704; J3010; J3475; J3480; J3490; Q0162

== ENCOUNTER 2019-04-07 06:57 | Day surgery (SDC) | payer MEDICARE, OTHER ==
[2019-04-06 14:34] VITALS: BMI 29.2
[2019-04-07] MEDS ORDERED: Levofloxacin 500 mg/D5W 100 ml Premix Bag ONE (07:56)
[2019-04-07] MEDS ORDERED: Famotidine/PF 20 mg/2ml Vial ONE (09:50)
[2019-04-07] MEDS ORDERED: Ondansetron PF 4 MG/2 ML Vial ONE ×2 (09:51→10:06)
[2019-04-07] MEDS ORDERED: EPHEDRINE 25 MG/5 ML SYRINGE ONE (10:06)
[2019-04-07] MEDS ORDERED: PROPOFOL 200 MG/20 ML VIAL ONE (10:06)
[2019-04-07] MEDS ORDERED: Succinylcholine Chloride 20 MG/ML 10 ml SYRINGE FS ONE (10:06)
[2019-04-07] MEDS ORDERED: Lidocaine 1% PF 5 ML VIAL ONE (10:06)
[2019-04-07] MEDS ORDERED: Dexamethasone 20 MG/5 ML VIAL ONE (10:06)
[2019-04-07] MEDS ORDERED: Fentanyl 100 MCG/2 ML VIAL ONE (10:49)
[2019-04-07] MEDS ORDERED: Iothalamate Meglumine 60% 50 ML VIAL FS ONE (11:30)
--- NOTE | 2019-04-07 12:22 | RAD ---
RETROGRADE PYELOGRAM: Date: 04/07/2019 HISTORY: Stent placement. FINDINGS: A series of 8 C-arm films show a right ureteral stent to be placed, which is in good position. IMPRESSION: Placement of a right ureteral stent. POS: [facility]
--- NOTE | 2019-04-07 16:02 | OP ---
DATE OF PROCEDURE: 04/07/2019 PREOPERATIVE DIAGNOSIS: Right ureteral stone. POSTOPERATIVE DIAGNOSIS: Right renal stone. PROCEDURES PERFORMED: Cystoscopy, removal of right stent, right flexible ureteroscopy, laser lithotripsy, stone retrieval, and stent replacement. ANESTHESIA: General. ESTIMATED BLOOD LOSS: Minimal. FINDINGS: The stone that was about 8 mm was no longer in the proximal ureter, but was in the lower pole calyceal system. It was broken up into pieces and a lot of it was destroyed as dust. The pieces were removed with Nitinol basket. A ureteral sheath was used. A 4.8 x 24 cm double-J stent with a string attached, it was left indwelling at the end of the case. DESCRIPTION OF PROCEDURE: After obtained written and verbal consent from the patient after receiving IV Levaquin, she was taken to the operating suite. She was placed in the supine position on the treatment table. PlexiPulses were placed on her lower extremities and turned on. She was given a general anesthetic, oral intubation, placed in the dorsal lithotomy position, and sterilely prepped and draped. Cystoscopy was performed with a 22-Taiwanese sheath. This was well lubricated and passed under direct vision through the female urethra into the bladder with aid of a 30-degree lens, video camera, and monitor. The distal end of the indwelling double-J stent was grasped and brought out through the urethral meatus and a guidewire was fed up through it into the region of the renal pelvis and the stent was removed over the wire and discarded. The dual-lumen ureteral catheter was placed over this in the region of the proximal ureter, and a second guidewire, this was a blue Stiff guidewire, which was placed through the second port on this, and then, it was placed up into the renal pelvis and then the dual-lumen catheter was removed. We brought in a small ureteral sheath with obturator, initially passed the obturator all way up to the proximal ureter and then the obturator with the sheath over the blue wire to the same position removing the blue wire and the sheath. We then brought in a flexible ureteroscope, passed it through the sheath and up into the renal pelvis. Searched out the renal pelvis, the only area we find the stone was in the lower collecting system, which we could see on her KUB that was done in the fluoroscopy unit. We used fluoroscopy to help in guidance with this. We then brought in a small caliber holmium laser fiber and broke up these pieces, trying to dust as much as we could. When we left just a few remaining fragments, we removed those with a Nitinol basket. They were not sent as the stones sent before were saved and given to the at the end of the case. Once there were no sizable fragments that all remaining, we backed the sheath out under direct vision with the flexible ureteroscope, but no abnormality to the ureter. This left our green guidewire in still as a safety wire and we backloaded this through the cystoscopic sheath, placed the Pollack catheter over it and up into the region of renal pelvis, removed the guidewire injected, about 15 mL of contrast, and showed no dilatation, no obstruction, and good flow of contrast down the ureter. We replaced the guidewire, removed the open-ended catheter, and placed a stent over the guidewire pushing up into place with aid of a pusher, so its proximal end coiled in the renal pelvis and its distal end coiled in the bladder when the wire was removed. The instruments were removed after the bladder was drained. The string was cut exiting couple of inches out of the urethral meatus. She was awakened, extubated, and taken by maksimer to recovery room. Job ID: [id number]
== END 2019-04-07 14:30 | disposition home or self-care (01) ==
LOC: SDC 06:57
PROVIDERS: ATTEND Urology
PROC: 0TF68ZZ Fragmentation in Right Ureter, Via Natural or Artificial Opening Endoscopic (ICD-10-PCS; principal; 2019-04-07)
PROC: 0T768DZ Dilation of Right Ureter with Intraluminal Device, Via Natural or Artificial Opening Endoscopic (ICD-10-PCS; 2019-04-07)
DX: N20.1 Calculus of ureter (principal); I10 Essential (primary) hypertension; Z88.5 Allergy status to narcotic agent; Z88.7 Allergy status to serum and vaccine; Z79.899 Other long term (current) drug therapy
CPT/HCPCS: 74420; C1758; J1100; J1956; J2001; J2405; J2704; J3010; S0028

== ENCOUNTER 2019-08-25 05:48 | Outpatient (CLI) | payer MEDICARE, OTHER ==
[2019-08-25 14:49] LABS: Hemoglobin 11.1 g/dL (12.0-16.0); Mean Corpuscular Hemoglobin 27.9 pg (27.0-31.0); Mean Platelet Volume 7.3 fL (7.4-10.4); Platelet Count 267 thou/uL (130-400); RBC Distribution Width 13.9 % (11.5-14.5); Red Blood Cell (RBC) Count 3.99 mill/uL (4.20-5.40); White Blood Cell (WBC) Count 6.3 thou/uL (4.8-10.8)
[2019-08-25 15:10] LABS: Anion Gap 13 mmol/L (10-20); BUN (Urea Nitrogen) 20 mg/dL (9.8-20.1); Calc. Creatinine Clearance 0 mL/min (70-130); Carbon Dioxide 27 mmol/L (23-31); Chloride 106 mmol/L (98-107); Estimated GFR-MDRD 53; Glucose 83 mg/dL (83-110); Sodium 142 mmol/L (136-145)
[2019-08-26 13:25] LABS: SARS-CoV-2 MS2 Positive; SARS-CoV-2 N Gene Negative; SARS-CoV-2 S Gene Negative; SARS-CoV-2 orf1ab Negative
== END 2019-08-25 05:49 | disposition home or self-care (01) ==
LOC: LABBT 05:48
PROVIDERS: ATTEND Neurological Surgery
DX: Z01.812 Encounter for preprocedural laboratory examination (principal); Z11.59 Encounter for screening for other viral diseases; M47.12 Other spondylosis with myelopathy, cervical region
CPT/HCPCS: 80048; 85027; U0003; 87635

== ENCOUNTER 2019-08-30 07:46 | Observation (INO) | payer MEDICARE, OTHER ==
[2019-08-23 15:59] VITALS: BMI 29.2
[2019-08-30] MEDS ORDERED: Fentanyl 100 MCG/2 ML VIAL ONE ×3 (10:38→12:56)
[2019-08-30] MEDS ORDERED: SUGAMMADEX SODIUM 500 MG/5 ML VIAL ONE (11:53)
[2019-08-30] MEDS ORDERED: HYDROmorphone 2 MG/ML VIAL SLOW IVP PRN (11:59)
[2019-08-30] MEDS ORDERED: Promethazine HCl 25 MG/ML VIAL SLOW IVP PRN (11:59)
[2019-08-30] MEDS ORDERED: Promethazine HCl 25 MG/ML VIAL IM PRN ×2 (11:59→12:21)
[2019-08-30] MEDS ORDERED: Ondansetron HCl/PF 4 MG/2 ML Vial IVP PRN (11:59)
[2019-08-30] MEDS ORDERED: diphenhydrAMINE 50 MG/ML VIAL IVP PRN (12:21)
[2019-08-30] MEDS ORDERED: Promethazine 25 MG TAB PO PRN (12:21)
[2019-08-30] MEDS ORDERED: Milk Of Magnesia 30 ML UDCUP PO PRN (12:21)
[2019-08-30] MEDS ORDERED: Promethazine HCl 12.5 MG SUPP PR PRN (12:21)
[2019-08-30] MEDS ORDERED: diphenhydrAMINE 25 MG CAP PO PRN (12:21)
[2019-08-30] MEDS ORDERED: traMADol HCl 50 MG TAB PO PRN ×2 (12:21)
[2019-08-30] MEDS ORDERED: tiZANidine HCl 4 MG TAB PO PRN (12:21)
[2019-08-30] MEDS ORDERED: Mag-Al 1200 mg/1200 mg/30 ML UDCUP PO PRN (12:21)
[2019-08-30] MEDS ORDERED: HYDROcodone/Acetaminophen 10/325 mg Tablet PO PRN (12:21)
[2019-08-30] MEDS ORDERED: Morphine 4 MG/ML VIAL SLOW IVP PRN (12:21)
[2019-08-30] MEDS ORDERED: Ondansetron PF 4 MG/2 ML Vial IVP PRN (12:21)
[2019-08-30] MEDS ORDERED: HYDROmorphone 2 MG/ML VIAL ONE ×2 (12:23→13:20)
[2019-08-30] MEDS ORDERED: Ketamine 50 MG/ML (10ML VIAL) ONE (12:39)
[2019-08-30] MEDS ORDERED: Ondansetron PF 4 MG/2 ML Vial ONE (12:43)
[2019-08-30] MEDS ORDERED: PROPOFOL 200 MG/20 ML VIAL ONE (12:43)
[2019-08-30] MEDS ORDERED: Lidocaine 1% PF 5 ML VIAL ONE (12:43)
[2019-08-30] MEDS ORDERED: Dexamethasone 20 MG/5 ML VIAL ONE (12:43)
[2019-08-30] MEDS ORDERED: Rocuronium Bromide 10 MG/ML (10ML VIAL) ONE (12:43)
--- NOTE | 2019-08-30 13:15 | OP ---
DATE OF PROCEDURE: 08/30/2019 POLYETHYLENE BAG MACHINE OPERATOR: Eboni Peck PA-C PROCEDURES PERFORMED: Anterior cervical diskectomy C4-C5 and C7-T1, interbody arthrodesis, intervertebral biomechanical device, local morselized autograft, demineralized bone matrix, anterior titanium instrumentation, C4-C5 and C7-T1. DESCRIPTION OF PROCEDURE: The patient was brought to the operating room and intubated. She was positioned supine with the head in modest extension on a gel-filled donut. Incision was made in a transverse fashion, which allowed us to expose from C4 through T1 of the anterior cervical spine, which we performed without difficulty. We placed distraction across C4-C5 and C7-T1 separately and using operating microscope and microdissection techniques, we completely compressed the intervertebral disks at both affected levels to the level of the dura. After complete decompression had been secured, the bony endplates were decorticated for the purpose of arthrodesis and appropriate-sized intervertebral biomechanical PEEK device was brought into the field filled with demineralized bone matrix and local morselized autograft, and tapped in place securely at C4-C5 and at C7-T1. It should be noted that the bones were found to be quite soft throughout. Next, an anterior titanium plate was brought into the field. Two separate titanium plates in fact and one was secured at C4-C5 and the other secured at C7-T1 using four 14 mm screws for each plate. The wound was then extensively irrigated and MAC hemostasis was secured. The wound was closed in anatomic layers over drain. Job ID: [id number]
[2019-08-30] MEDS: Sodium Chloride 0.9% 1,000 ML IV SCH (15:10)
[2019-08-30] MEDS: Morphine 2 MG/ML VIAL SLOW IVP PRN (16:42)
[2019-08-30] MEDS: CEFAZOLIN 2 GM in Premix Bag 1 BAG IVPB SCH (18:33)
--- NOTE | 2019-08-30 19:56 | CON ---
DATE OF CONSULTATION: CHIEF COMPLAINT: Elective anterior cervical dissection with fusion by Dr. Jane. HISTORY OF PRESENT ILLNESS: The patient is a 74-year-old female with a past medical history significant for hypertension, GERD, hyperlipidemia, depression, and hypothyroidism, who presents to the hospital for the above complaint. Currently, the patient denies any focal weakness, numbness, or tingling. She denies any headache. She denies any fever or chills. She denies any abdominal pain, nausea, vomiting, or diarrhea. She denies any chest pain, heart palpitations, or shortness of breath. She denies any dysuria. The patient is resting comfortably in bed at the time of assessment. PAST MEDICAL HISTORY: 1. Hypertension. 2. GERD. 3. Hyperlipidemia. 4. Depression. 5. Hypothyroidism. 6. Muscle spasms. SURGICAL HISTORY: Anterior cervical dissection with fusion by Dr. Jane. SOCIAL HISTORY: The patient lives at home with family. No smoking. No alcohol. No illicit drug use. FAMILY HISTORY: Noncontributory to this case. ALLERGIES: 1. CODEINE. 2. TETANUS VACCINE AND TOXOID. HOME MEDICATIONS: 1. Amitriptyline 25 mg p.o. q.p.m. 2. Norvasc 10 mg p.o. q.p.m. 3. Aspirin 81 mg p.o. daily. 4. Hydrochlorothiazide 25 mg p.o. daily. 5. Hydrocodone and acetaminophen 5/325 mg one to two tablets p.o. p.r.n. pain. 6. Tramadol 50 mg p.o. q.6 hours p.r.n. pain. 7. Cetirizine 10 mg p.o. daily. 8. Vitamin D3, 5000 units p.o. daily. 9. Citalopram 20 mg p.o. nightly. 10. Vitamin B12, 1000 mcg p.o. daily. 11. Levothyroxine 137 mcg q.a.m. 12. Mag-Ox 400 mg p.o. at bedtime. 13. Omeprazole 40 mg p.o. daily. 14. Rosuvastatin 5 mg p.o. q.p.m. 15. Tizanidine 4 mg tablet one p.o. nightly for muscle spasms. REVIEW OF SYSTEMS: All review of systems is negative unless otherwise stated in HPI. PHYSICAL EXAMINATION: VITAL SIGNS: Temperature 98.7, blood pressure of 155/79, heart rate 87, respirations 16, 96% on room air, 0/10 pain. CONSTITUTIONAL: The patient is alert and oriented to person, place, and time. No acute distress. Nontoxic in appearance. HEAD: Atraumatic and normocephalic. EYES: PERRLA. Extraocular muscles intact. NECK: There is a bandage to the anterior neck, status post ACD with fusion by Dr. Jane. The patient has full range of motion. No cervical spinous tenderness. No swelling. No stridor. ENT: EACs clear bilaterally. TMs intact. Nares patent bilaterally. Oropharynx is clear. Moist mucous membranes. Uvula midline. RESPIRATORY/CHEST: Respirations even and unlabored. Clear to auscultation. CARDIOVASCULAR: S1 and S2 appreciated. No murmurs, rubs, or gallops. ABDOMEN: Soft, nontender, nondistended. Hypoactive bowel sounds. No guarding. No rigidity. No rebound tenderness. BACK: Full range of motion. No central spinous tenderness. No CVA tenderness. EXTREMITIES: Upper extremities; full range of motion, strength normal, sensation intact, palpable radial pulses. Lower extremities; full range of motion, normal strength, sensation intact, palpable pedal pulses, no swelling. NEUROLOGIC: Cranial nerves 2 through 12 intact. No focal motor deficits. Moves all extremities well. Follows commands. LABORATORY DATA AND DIAGNOSTICS: Preop labs reviewed. CMP and CBC are unremarkable. IMPRESSION AND PLAN: 1. Hypertension. The patient's current blood pressure, mildly hypertensive at 162/81, second reading 155/79. The patient denies any headache. We will restart the patient's home medications, Norvasc and add p.r.n. as needed. 2. Gastroesophageal reflux disease. We will start pantoprazole. 3. Hyperlipidemia. We will restart the patient's home statin. 4. Depression. We will restart the patient's home medication. 5. Muscle cramps. We will restart the patient's Mag-Ox and tizanidine at night per her request. 6. PT to evaluate and treat. Pantoprazole for gastrointestinal prophylaxis. SCDs for deep venous thrombosis prophylaxis. The patient is a full code. 7. Discussed case with Dr. Connors. Job ID: [id number]
[2019-08-30] MEDS ORDERED: Amlodipine 10 MG TAB PO SCH ×2 (21:00)
[2019-08-30] MEDS ORDERED: Amitriptyline HCl 25 MG TAB PO SCH (21:00)
[2019-08-30] MEDS ORDERED: Magnesium Oxide 400 MG TAB PO SCH (21:00)
[2019-08-30] MEDS ORDERED: tiZANidine HCl 4 MG TAB PO SCH (21:00)
[2019-08-30] MEDS ORDERED: Citalopram 20 MG TAB PO SCH (21:00)
[2019-08-30] MEDS ORDERED: Rosuvastatin 5 MG TAB PO SCH (21:00)
[2019-08-30] MEDS: HYDROcodone/Acetaminophen 10/325 mg Tablet PO PRN (21:40)
[2019-08-31] MEDS: Sodium Chloride 0.9% 1,000 ML IV SCH ×2 (02:28→14:57)
[2019-08-31] MEDS: CEFAZOLIN 2 GM in Premix Bag 1 BAG IVPB SCH ×2 (02:45→10:12)
[2019-08-31 05:38] LABS: #Lymphocytes 0.8 thou/uL (1.20-3.40); #Monocytes 0.6 thou/uL (0.11-0.59); %Basophils 0.1 % (0.0-1.0); %Eosinophils 0.1 % (0.0-10.0); %Lymphocytes 12.4 % (21.0-51.0); %Monocytes 9.2 % (0.0-10.0); %Neutrophils 78.1 % (42.0-75.0); Hemoglobin 9.6 g/dL (12.0-16.0); Mean Corpuscular HGB CONC 31.2 g/dL (32.0-36.0); Mean Corpuscular Hemoglobin 26.9 pg (27.0-31.0); Mean Corpuscular Volume 86.2 fL (78.0-98.0); Mean Platelet Volume 7.2 fL (7.4-10.4); Platelet Count 203 thou/uL (130-400); RBC Distribution Width 14.1 % (11.5-14.5); Red Blood Cell (RBC) Count 3.58 mill/uL (4.20-5.40); White Blood Cell (WBC) Count 6.3 thou/uL (4.8-10.8)
[2019-08-31] MEDS: HYDROcodone/Acetaminophen 10/325 mg Tablet PO PRN ×2 (05:45→11:48)
[2019-08-31 05:58] LABS: Anion Gap 10 mmol/L (10-20); BUN (Urea Nitrogen) 20 mg/dL (9.8-20.1); Calc. Creatinine Clearance 61 mL/min (70-130); Calcium 9.2 mg/dL (7.8-10.44); Carbon Dioxide 25 mmol/L (23-31); Chloride 106 mmol/L (98-107); Estimated GFR-MDRD 65; Glucose 122 mg/dL (83-110); Potassium 4.3 mmol/L (3.5-5.1); Sodium 137 mmol/L (136-145)
[2019-08-31] MEDS ORDERED: Levothyroxine Sodium 25 MCG TAB PO SCH (06:00)
[2019-08-31] MEDS ORDERED: Levothyroxine Sodium 112 MCG TAB PO SCH (06:00)
--- NOTE | 2019-08-31 06:32 | PRG ---
DATE OF SERVICE: 08/31/2019 SUBJECTIVE: The patient is postoperative day #1, status post C4-C5 and C7-T1 ACDF. Overnight, she has had some soreness in the posterior neck and shoulders, but this appears to be controlled with p.o. [place]. She is also using some ice to the area. She has some mild hoarseness of the voice, but she reports that this is not particularly unusual for her in the mornings. She is tolerating p.o. and not having any respiratory difficulties. She has not ambulated much at this point. Her BRANDON had 55 mL out overnight. OBJECTIVE: On exam this morning, the patient is awake and alert, in no acute distress. Her dressing is clean and dry, soft. She has a small amount of serosanguinous blood in the BRANDON. She moves all 4s without significant difficulty. PLAN: We will plan to mobilize with the assistance of nursing and PT this morning. We will remove her BRANDON and discontinue her IV Ancef. Depending on how she mobilized this morning, I anticipate that she may be able to go home in the afternoon. Job ID: [id number]
[2019-08-31] MEDS ORDERED: Loratadine 10 MG TAB PO SCH (09:00)
[2019-08-31] MEDS ORDERED: Cholecalciferol 1,000 UNITS (25 MCG) TAB PO SCH (09:00)
[2019-08-31] MEDS ORDERED: Non-Formulary Item 1 EACH (Levothyroxine Sodium [Synthroid] 1 TAB) PO SCH (09:00)
[2019-08-31] MEDS ORDERED: Cyanocobalamin (Vitamin B-12) 1,000 MCG TAB PO SCH (09:00)
--- NOTE | 2019-08-31 10:57 | DIS ---
DATE OF ADMISSION: 08/30/2019 DATE OF DISCHARGE: 08/31/2019 HOSPITAL COURSE: The patient is a 74-year-old female, known to us for recent evaluation of cervical stenosis with cervical myelopathy. She was found to have severe stenosis at C4-C5 and C7-T1. She underwent C4-C5 and C7-T1 ACDF on 08/30/2019. Following surgery, she was transitioned to the Med/Surg floor, where pain has been well-controlled with p.o. medications, she is tolerating a regular diet, and she is voiding appropriately. She has chronic incontinence, but this is unchanged for the patient. She had a BRANDON drain placed intraoperatively with approximately 55 mL out over the first night. This drain was removed after postoperative night #1. She ambulated easily with PT. On exam on postoperative day 1, the patient was awake, alert, in no acute distress. Her incision was clean, dry, soft. She has free active range of motion of all extremities and no focal motor weakness. The patient was discharged to home. I have discussed home care precautions prior to discharge. We will follow up in 2 weeks. Job ID: [id number] [facility]
[2019-08-31 13:22] VITALS: BP 139/68; TEMP 98.6
[2019-08-31] MEDS: Morphine 2 MG/ML VIAL SLOW IVP PRN (15:04)
== END 2019-08-31 14:50 | disposition home or self-care (01) ==
LOC: SDC 07:46 → SURG B 12:27 → UNDOADMOB 15:36
PROVIDERS: ADMIT Neurological Surgery; ATTEND Neurological Surgery
PROC: 0RG20A0 Fusion of 2 or more Cervical Vertebral Joints with Interbody Fusion Device, Anterior Approach, Anterior Column, Open Approach (ICD-10-PCS; principal; 2019-08-30)
PROC: 0RT30ZZ Resection of Cervical Vertebral Disc, Open Approach (ICD-10-PCS; 2019-08-30)
DX: M48.02 Spinal stenosis, cervical region (principal); M47.12 Other spondylosis with myelopathy, cervical region; I10 Essential (primary) hypertension; E78.5 Hyperlipidemia, unspecified; K21.9 Gastro-esophageal reflux disease without esophagitis; E03.9 Hypothyroidism, unspecified; F32.9 Major depressive disorder, single episode, unspecified; G89.29 Other chronic pain; M54.9 Dorsalgia, unspecified; M19.90 Unspecified osteoarthritis, unspecified site; M62.838 Other muscle spasm; Z79.899 Other long term (current) drug therapy; Z88.5 Allergy status to narcotic agent; Z88.6 Allergy status to analgesic agent
CPT/HCPCS: 20930; 20936; 22551; 22552; 22853 ×2; 76000; 80048; 85025; 97116; 97139; 97530; C1713 ×2; C1776 ×2; J2270 ×2; 36415; 96361; 96365; 96366; 96375; 96376; G0378; J0690; J1100; J1170; J2405; J2704; J3010

== ENCOUNTER 2019-09-15 12:41 | Outpatient (CLI) | payer MEDICARE, OTHER ==
--- NOTE | 2019-09-15 14:06 | RAD ---
CERVICAL SPINE: 09/15/19 INDICATIONS: Cervical spondylosis. Follow-up surgery. Anterior plate and screws and interbody implant consistent with ACDF procedure at the C4-5 level is n oted. Similar findings are also noted at the C7-T1 level. Posterior spondylosis is seen at the C4-5, C5-6 and C6-7 levels. Posterior alignment is preserved. Lo ss of disc space at C5-6 and C6-7 with degenerative changes. Facet hypertrophy. IMPRESSION: Postoperative and degenerative changes of the cervical spine as described. ACDF changes at C4-5 and a t C7-T1. POS: [facility]W
== END 2019-09-15 12:42 | disposition home or self-care (01) ==
LOC: TBSIIMAG 12:41
PROVIDERS: ATTEND Neurological Surgery
DX: M47.22 Other spondylosis with radiculopathy, cervical region (principal); Z98.1 Arthrodesis status
CPT/HCPCS: 72040

== ENCOUNTER 2019-11-05 12:17 | Outpatient (CLI) | payer MEDICARE, OTHER ==
--- NOTE | 2019-11-05 13:03 | RAD ---
EXAM: XR Cerv Sp Ap Lat STANDARD PROVIDED CLINICAL HISTORY: Spinal stenosis COMPARISON: 09/15/2019 FINDINGS: Cervical alignment appears normal. ACDF changes at C4-5 and C7-T1 are redemonstrated, without evidenc e for hardware loosening or migration. Disc space narrowing and endplate degenerative changes at C5-6 and C6-7 as well as multilevel facet arthritis and uncinate process hypertrophy are redemonstrat ed. There is no prevertebral soft tissue swelling apparent. The visualized lung apices appear clear. IMPRESSION: Stable postoperative change.
== END 2019-11-05 12:18 | disposition home or self-care (01) ==
LOC: SCSRAD 12:17
PROVIDERS: ATTEND Neurological Surgery
DX: M48.02 Spinal stenosis, cervical region (principal); Z98.1 Arthrodesis status
CPT/HCPCS: 72040

== ENCOUNTER 2019-12-06 07:43 | Outpatient (CLI) | payer MEDICARE, OTHER ==
[2019-12-06 14:30] LABS: Hemoglobin 12.1 g/dL (12.0-16.0); Mean Corpuscular HGB CONC 32.6 g/dL (32.0-36.0); Mean Corpuscular Hemoglobin 28.3 pg (27.0-31.0); Mean Corpuscular Volume 86.7 fL (78.0-98.0); Mean Platelet Volume 7.1 fL (7.4-10.4); Platelet Count 272 thou/uL (130-400); RBC Distribution Width 13.9 % (11.5-14.5); Red Blood Cell (RBC) Count 4.27 mill/uL (4.20-5.40); White Blood Cell (WBC) Count 6.1 thou/uL (4.8-10.8)
[2019-12-06 14:38] LABS: Anion Gap 13 mmol/L (10-20); BUN (Urea Nitrogen) 24 mg/dL (9.8-20.1); Calc. Creatinine Clearance 0 mL/min (70-130); Calcium 9.8 mg/dL (7.8-10.44); Carbon Dioxide 28 mmol/L (23-31); Chloride 106 mmol/L (98-107); Estimated GFR-MDRD 48; Glucose 113 mg/dL (83-110); Potassium 4.3 mmol/L (3.5-5.1); Sodium 143 mmol/L (136-145)
[2019-12-07 11:05] LABS: SARS-CoV-2 MS2 Positive; SARS-CoV-2 N Gene Negative; SARS-CoV-2 S Gene Negative; SARS-CoV-2 by NAA Not Detected (NotDetected); SARS-CoV-2 orf1ab Negative
== END 2019-12-06 07:44 | disposition home or self-care (01) ==
LOC: LABBT 07:43
PROVIDERS: ATTEND Neurological Surgery
DX: Z01.818 Encounter for other preprocedural examination (principal); Z20.828 Contact with and (suspected) exposure to other viral communicable diseases; M43.16 Spondylolisthesis, lumbar region
CPT/HCPCS: 80048; 85027; 93005; U0003; 87635; 93010

== ENCOUNTER 2019-12-09 05:48 | Inpatient (IN) | payer MEDICARE, OTHER ==
[2019-12-09] MEDS ORDERED: Fentanyl 100 MCG/2 ML VIAL ONE ×4 (07:04→09:47)
[2019-12-09] MEDS ORDERED: Meperidine HCl/PF 25 MG/ML VIAL ONE (09:21)
[2019-12-09] MEDS ORDERED: Promethazine HCl 25 MG/ML VIAL ONE (09:24)
[2019-12-09] MEDS ORDERED: Ondansetron PF 4 MG/2 ML Vial IM PRN (09:25)
[2019-12-09] MEDS ORDERED: Promethazine HCl 12.5 MG SUPP PR PRN (09:30)
[2019-12-09] MEDS ORDERED: Mag-Al 1200 mg/1200 mg/30 ML UDCUP PO PRN (09:30)
[2019-12-09] MEDS ORDERED: diphenhydrAMINE 25 MG CAP PO PRN (09:30)
[2019-12-09] MEDS ORDERED: traMADol HCl 50 MG TAB PO PRN (09:30)
[2019-12-09] MEDS ORDERED: Morphine 2 MG/ML VIAL SLOW IVP PRN (09:30)
[2019-12-09] MEDS ORDERED: Milk Of Magnesia 30 ML UDCUP PO PRN (09:30)
[2019-12-09] MEDS ORDERED: Promethazine HCl 25 MG/ML VIAL IM PRN (09:30)
[2019-12-09] MEDS ORDERED: Promethazine 25 MG TAB PO PRN (09:30)
[2019-12-09] MEDS ORDERED: diphenhydrAMINE 50 MG/ML VIAL IVP PRN (09:30)
[2019-12-09] MEDS ORDERED: tiZANidine HCl 4 MG TAB ONE (09:37)
--- NOTE | 2019-12-09 09:41 | OP ---
DATE OF PROCEDURE: 12/09/2019 DIRECTOR LOAN: Eboni Peck PA-C PROCEDURE PERFORMED: L3 through L5 laminectomy, posterolateral arthrodesis, pedicle screw instrumentation L4-L5, demineralized bone matrix and local morselized autograft. DESCRIPTION OF PROCEDURE: The patient was brought to the operating room and intubated. She was rolled in a prone position on gel-filled chest rolls. An incision was made exposing L4 and L5 and the level was confirmed by x-ray. We performed complete L5 and complete L4 laminectomies, completely decompressed the neural elements. The degree of compression seemed to extend up into the L3-L4 interspace and I extended the laminectomy to L3 to incorporate the L3-L4 interspace. After complete decompression had been achieved from L3 through L5, we placed pedicle screws at right L4 and right L5 using lateral fluoroscopic guidance. The severo was secured between the screws, connected by nuts, which were final tightened. The wound was then extensively irrigated and MAC hemostasis was secured. A combination of demineralized bone matrix and local morselized autograft was laid over the posterolateral surfaces bilaterally for the purpose of arthrodesis. Vancomycin powder was applied and the wound was closed in anatomic layers over drain. Job ID: [id number]
[2019-12-09] MEDS ORDERED: HYDROmorphone 2 MG/ML VIAL ONE (09:46)
[2019-12-09] MEDS ORDERED: Dexamethasone 4 mg/ml Vial ONE (09:54)
[2019-12-09] MEDS ORDERED: Rocuronium Bromide 10 MG/ML (10ML VIAL) ONE (11:58)
[2019-12-09] MEDS ORDERED: PROPOFOL 200 MG/20 ML VIAL ONE (11:58)
[2019-12-09] MEDS ORDERED: Lidocaine 1% PF 5 ML VIAL ONE (11:58)
[2019-12-09] MEDS ORDERED: Dexamethasone 20 MG/5 ML VIAL ONE (11:58)
[2019-12-09] MEDS ORDERED: EPHEDRINE 25 MG/5 ML SYRINGE ONE (11:58)
[2019-12-09] MEDS ORDERED: Ondansetron PF 4 MG/2 ML Vial ONE (11:58)
[2019-12-09] MEDS ORDERED: Glycopyrrolate 0.2 MG/ML 5 ML SYRINGE ONE (11:58)
[2019-12-09] MEDS: Sodium Chloride 0.9% 1,000 ML IV SCH ×2 (13:30→23:27)
[2019-12-09] MEDS ORDERED: CEFAZOLIN 2 GM in Premix Bag 1 BAG IVPB SCH (14:00)
[2019-12-09] MEDS: HYDROcodone/Acetaminophen 10/325 mg Tablet PO PRN ×2 (16:28→22:02)
[2019-12-09] MEDS: CEFAZOLIN 2 GM in Premix Bag 1 BAG IVPB SCH (16:29)
--- NOTE | 2019-12-09 16:40 | PDOC.HHP ---
Hospitalist HPI - History of Present Illness Consult for medical management History of Present Illness: Ms. Land is a 74-year-old female with a past medical history of cervical stenosis, hypothyroidism, GERD, kidney stones, arthritis, remote history of transverse myelitis, depression who was admitted for a L3-L5 laminectomy which was performed by Dr. Jane on 12/09/2019. Hospitalist service was consulted for medical management of patient's chronic medical conditions. Patient is resting comfortably in bed a few hours post procedure. She denies any dizziness, numbness, weakness, changes in vision. She denies any chest pain or shortness of breath. Reports her pain is well controlled. Try medications reviewed. Hospitalist ROS - Review of Systems Eyes: denies: pain, vision change, conjunctivae inflammation, eyelid inflamm ation, redness, other ENT: denies: ear pain, ear discharge, nose pain, nose discharge, nose congestion, mouth pain, mouth swelling, throat pain, throat swelling, other Respiratory: denies: cough, dry, shortness of breath, hemoptysis, SOB with excertion, pleuritic pain, sputum, wheezing, other Cardiovascular: denies: chest pain, palpitations, orthopnea, paroxysmal noc. dyspnea, edema, light headedness, other Gastrointestinal: denies: nausea, vomiting, abdominal pain, diarrhea, constipation, melena, hematochezia, other Genitourinary: denies: dysuria, frequency, incontinence, hematuria, retention, other Musculoskeletal: reports: back pain, leg pain Skin: denies: rash, lesions, lauren, bruising, other Neurological: denies: weakness, numbness, incoordination, change in speech, confusion, seizures, other Other: Dressings clean dry intact - Medication Medications: Home medications include Tramadol Tizanidine Crestor Omeprazole Levothyroxine Citalopram Hydrochlorothiazide Vitamin D3 Amlodipine Amitriptyline Aspirin Patient reports allergies to codeine, tetanus Hospitalist History - Past Medical History Other Medical History: Past medical history includes Cervical stenosis Hypothyroidism GERD Kidney stones Arthritis Transverse myelitis thought to be secondary to shingles Gait disturbance which is chronic Arthritis - Past Surgical History Other Surgical History: Past surgical history includes L3-L5 laminectomy ACDF Lithotripsy Ureteral stents Carpal tunnel right Tonsillectomy Cholecystectomy Right ankle surgery - Family History Other Family History: Reports family history of CHF. Denies any family history of MIs, cancer, diabetes. - Social History Smoking Status: Never smoker Alcohol: reports: None Drugs: reports: none Living Situation: With Family Activity level: independent ambulation - Exam General Appearance: NAD, awake alert Eye: PERRL, anicteric sclera ENT: normocephalic atraumatic, no oropharyngeal lesions, moist mucosa Neck: supple, symmetric, no JVD, no thyromegaly, no lymphadenopathy, no carotid bruit Heart: RRR, no murmur, no gallops, no rubs, normal peripheral pulses Respiratory: CTAB, no wheezes, no rales, no ronchi, normal chest expansion, no tachypnea, normal percussion Gastrointestinal: soft, non-tender, non-distended, normal bowel sounds, no palpable masses, no hepatomegaly, no splenomegaly, no bruit Extremities: no cyanosis, no clubbing, no edema Skin: normal turgor, no lesions, no rashes Neurological: normal sensation to touch, no focal deficits Musculoskeletal: normal tone, normal strength Musculoskeletal - other findings: Dressings clean dry intact Psychiatric: normal affect, normal behavior, A&O x 3 Hospitalist H&P A/P - Plan Plan: Status post L3-L5 laminectomy Postop day 0 for L3-L5 laminectomy with Dr. Jane. Patient tolerated procedure well with no complications. Did have some significant pain while down in anesthesia, but now is resting comfortably in bed. Denies chest pain, shortness of breath. Endorses passing flatus. I-S encouraged Plan Postop care per surgical team Incentive spirometry encouraged Hypertension Continue home amlodipine. Will hold home hydrochlorothiazide, as patient reports that this sometimes make her dizzy. Will monitor blood pressures closely. Hyperlipidemia Continue home Crestor Anxiety/depression Continue home citalopram, amitriptyline Hypothyroidism Continue home levothyroxine GERD Continue home omeprazole Chronic back pain Continue home tramadol. Pain management per surgical team. DVT prophylaxis per surgical team Full code Case discussed with attending physician Dr. Church.
[2019-12-09 18:06] LABS: Syphilis Antibody Nonreactive (Nonreactive); Syphilis Antibody Index 0.03 S/CO (<1.00 Non-Reactive)
[2019-12-09] MEDS: Rosuvastatin 5 MG TAB PO SCH (19:52)
[2019-12-09] MEDS: tiZANidine HCl 4 MG TAB PO PRN (19:52)
[2019-12-09] MEDS: Amitriptyline HCl 25 MG TAB PO SCH (19:52)
[2019-12-09] MEDS: Amlodipine 10 MG TAB PO SCH (19:52)
[2019-12-10] MEDS: CEFAZOLIN 2 GM in Premix Bag 1 BAG IVPB SCH ×4 (00:48→23:47)
[2019-12-10] MEDS: HYDROcodone/Acetaminophen 10/325 mg Tablet PO PRN ×4 (02:11→21:12)
[2019-12-10] MEDS: tiZANidine HCl 4 MG TAB PO PRN ×2 (02:11→21:12)
[2019-12-10] MEDS: Levothyroxine Sodium 112 MCG TAB PO SCH (05:12)
[2019-12-10] MEDS: Levothyroxine Sodium 25 MCG TAB PO SCH (05:12)
[2019-12-10 08:09] LABS: #Lymphocytes 0.9 thou/uL (1.20-3.40); #Monocytes 0.5 thou/uL (0.11-0.59); #Neutrophils 5.7 thou/uL (1.40-6.50); %Basophils 0.5 % (0.0-1.0); %Eosinophils 0.1 % (0.0-10.0); %Lymphocytes 12.2 % (21.0-51.0); %Monocytes 7.4 % (0.0-10.0); %Neutrophils 79.9 % (42.0-75.0); Hemoglobin 8.7 g/dL (12.0-16.0); Mean Corpuscular HGB CONC 32.9 g/dL (32.0-36.0); Mean Corpuscular Hemoglobin 28.4 pg (27.0-31.0); Mean Corpuscular Volume 86.3 fL (78.0-98.0); Platelet Count 154 thou/uL (130-400); RBC Distribution Width 13.8 % (11.5-14.5); Red Blood Cell (RBC) Count 3.07 mill/uL (4.20-5.40); White Blood Cell (WBC) Count 7.1 thou/uL (4.8-10.8)
[2019-12-10 08:27] LABS: Anion Gap 11 mmol/L (10-20); BUN (Urea Nitrogen) 24 mg/dL (9.8-20.1); Calc. Creatinine Clearance 66 mL/min (70-130); Calcium 8.9 mg/dL (7.8-10.44); Carbon Dioxide 27 mmol/L (23-31); Chloride 104 mmol/L (98-107); Estimated GFR-MDRD 72; Glucose 138 mg/dL (83-110); Sodium 138 mmol/L (136-145)
[2019-12-10] MEDS: Citalopram 20 MG TAB PO SCH (08:37)
[2019-12-10] MEDS ORDERED: Non-Formulary Item 1 EACH (Levothyroxine Sodium [Synthroid] 137 MCG Tablet) PO SCH (09:00)
--- NOTE | 2019-12-10 09:08 | PDOC.HOSPP ---
- Subjective Encounter Date: 12/10/19 Encounter Time: 08:00 Subjective: No overnight events. Patient reports her pain is well controlled. Has not had bowel movement, but is passing flatus. Reports some mild bladder cramping overnight which has improved since removing the Toth catheter. She denies any current dysuria. Denies fever, night sweats, chills. Denies shortness of breath, chest pain, palpitations, abdominal pain. Chart and medications reviewed. - Objective Vital Signs & Weight: Vital Signs (12 hours) Temp Pulse Resp BP BP Pulse Ox 12/10/19 08:22 98.1 F 66 18 104/62 94 L 12/10/19 05:11 98.1 F 75 16 143/74 H 97 12/09/19 23:27 98.7 F 87 16 113/58 L 98 Weight Weight 148 lb I&O: 12/09/19 12/10/19 12/11/19 06:59 06:59 06:59 Intake Total 2122 Output Total 145 Balance 1977 Result Diagrams: 12/10/19 07:58 12/10/19 07:58 Hospitalist ROS - Review of Systems Constitutional: denies: fever, chills, sweats, weakness, malaise, other Eyes: denies: vision change Respiratory: denies: cough, shortness of breath Cardiovascular: denies: chest pain, palpitations Gastrointestinal: denies: nausea, vomiting, abdominal pain, diarrhea Genitourinary: denies: dysuria, frequency Musculoskeletal: reports: back pain, leg pain Neurological: denies: weakness, numbness - Medication Medications: Active Medications Generic Name Dose Route Start Last Admin Trade Name Freq PRN Reason Stop Dose Admin Hydrocodone Bitart/Acetaminophen 2 tab 12/09/19 09:30 12/10/19 07:25 Hydrocodone/Acetaminophen 10/325 Mg Tablet PO 2 tab Q4H PRN Administration PAIN (4-6) Amitriptyline HCl 25 mg 12/09/19 21:00 12/09/19 19:52 Amitriptyline Hcl 25 Mg Tab PO 25 mg HS ISABEL Administration Amlodipine Besylate 10 mg 12/09/19 21:00 12/09/19 19:52 Amlodipine 10 Mg Tab PO 10 mg HS ISABEL Administration Citalopram Hydrobromide 20 mg 12/10/19 09:00 12/10/19 08:37 Citalopram 20 Mg Tab PO 20 mg DAILY ISABEL Administration Diphenhydramine HCl 25 mg 12/09/19 09:30 12/09/19 23:39 Diphenhydramine 25 Mg Cap PO 25 mg Q6H PRN Administration Itching Sodium Chloride 1,000 mls @ 75 mls/hr 12/09/19 09:30 12/09/19 23:27 Normal Saline 0.9% IV 1,000 mls .[id number] ISABEL Administration Cefazolin Sodium/Dextrose 2 gm 50 mls @ 100 mls/hr 12/09/19 16:00 12/10/19 08:38 / Device IVPB 50 mls Q8H ISABEL Administration Levothyroxine Sodium 112 mcg 12/10/19 06:00 12/10/19 05:12 Levothyroxine Sodium 112 Mcg Tab PO 112 mcg 0600 ISABEL Administration Levothyroxine Sodium 25 mcg 12/10/19 06:00 12/10/19 05:12 Levothyroxine Sodium 25 Mcg Tab PO 25 mcg 0600 ISABEL Administration Pantoprazole Sodium 40 mg 12/10/19 09:00 12/10/19 08:37 Pantoprazole 40 Mg Tab PO 40 mg DAILY ISABEL Administration Rosuvastatin Calcium 5 mg 12/09/19 21:00 12/09/19 19:52 Rosuvastatin 5 Mg Tab PO 5 mg HS ISABEL Administration Sodium Chloride 10 ml 12/09/19 21:00 12/10/19 08:39 Flush - Normal Saline 10 Ml Syringe IVF Not Given Q12HR ISABEL Tizanidine HCl 4 mg 12/09/19 09:30 12/10/19 02:11 Tizanidine Hcl 4 Mg Tab PO 4 mg Q6H PRN Administration MUSCLE SPASM - Exam General Appearance: NAD, awake alert Eye: anicteric sclera ENT: normocephalic atraumatic, dry oral mucosa Neck: supple, symmetric, no JVD Heart: RRR, no murmur, no gallops, no rubs, normal peripheral pulses Respiratory: CTAB, no wheezes, no rales, no ronchi, normal chest expansion, no tachypnea, normal percussion Gastrointestinal: soft, non-tender, non-distended, normal bowel sounds, no palpable masses, no hepatomegaly, no splenomegaly, no bruit Extremities: no cyanosis, no clubbing, no edema Skin: normal turgor, no lesions, no rashes Skin - other findings: Dressings clean intact Neurological: normal sensation to touch, no weakness, no focal deficits Musculoskeletal: normal tone, normal strength, no muscle wasting Psychiatric: normal affect, normal behavior, A&O x 3 Hosp A/P - Plan Status post L3-L5 laminectomy Postop day 1 for L3-L5 laminectomy with Dr. Jane. Patient tolerated procedure well with no complications. Did have some significant pain while down in anesthesia, but now is resting comfortably in bed. Denies chest pain, shortness of breath. Endorses passing flatus. IS encouraged Plan Postop care per surgical team Incentive spirometry encouraged Hypertension Continue home amlodipine. Will hold home hydrochlorothiazide, as patient reports that this sometimes make her dizzy. Will monitor blood pressures clos [place]. Hyperlipidemia Continue home Crestor. Anxiety/depression Continue home citalopram, amitriptyline. Hypothyroidism Continue home levothyroxine. GERD Continue home omeprazole. Bladder spasm Patient reports mild bladder spasm which she feels is iritation from the toth catheter. Has improved with removal of toth catheter. Patient reports history of UTIs, so will monitor closely for new symptoms. Chronic back pain Continue home tramadol, tizanidine. Pain management per surgical team. DVT prophylaxis per surgical team Full code Case discussed with attending physician Dr. Church.
--- NOTE | 2019-12-10 10:07 | PRG ---
DATE OF SERVICE: 12/10/2019 The patient is postoperative day #1, status post L4-L5 decompression and fusion with right-sided hardware placement. Following the surgery, she had significant pain control issues, which have continued overnight. She has fairly severe pain in the low back radiating into the right proximal leg. She also has some associated right proximal leg weakness and has difficulty lifting the right leg off the bed. She had a BRANDON drain placed intraoperatively and has had approximately 140 mL over the first night. Vital signs are stable. She has been afebrile overnight. Her sensation is intact to light touch. She has some weakness in the right proximal leg 3/5. She has good strength in the remainder of the extremities. Incision is clean, dry, and intact. I discussed the patient's significant postoperative pain and right proximal leg weakness with Dr. Jane. We will go ahead and check a noncontrast CT of the lumbar spine. I will also restart her steroids and I have ordered 4 mg of Decadron q.8 h. Consider the option of gabapentin, but the patient has not tolerated this medication well in the past. We will continue p.r.n. [place], tramadol, and often morphine for breakthrough pain. We will follow results of her imaging closely. Job ID: [id number] [facility]
--- NOTE | 2019-12-10 11:58 | CT ---
CT SCAN LUMBAR SPINE WITHOUT CONTRAST: INDICATION: Back pain. Radiation to right leg. COMPARISON: Correlation is made to MRI of lumbar spine dated 01/28/2019. FINDINGS: Lumbar vertebrae maintain height. Severe degenerative disk and end plate changes at L1-2 are noted s imilar to the prior MRI. Anterolisthesis at L4-5 is again noted and has not significantly changed. Degenerative disk changes at all levels with vacuum phenomena present at L1-2, L3-4, and L4-5. There are new postoperative changes. Pedicle screws are seen on the right at L4 and L5. A drainage catheter is seen posteriorly at the L5-S1 level extending to the posterior laminectomy site slightly to the right of midline. Gas pockets are seen at the posterior laminectomy sites at L4-5 and at L5-S 1 consistent with postoperative change. Gas pockets in the subcutaneous tissues posteriorly from pos toperative change. There is abnormal density seen at the laminectomy site posteriorly at L4-5 and extending superiorly p osterior to the L4 vertebra. This measures approximately 2 cm craniocaudal dimension x approximately 1 cm AP dimension. Small hematoma is suspected given the increased density seen on the CT. Suggest continued followup. IMPRESSION: 1. Postoperative changes are now seen at L4 and L5 with pedicle screws on the right. Laminectomy changes at L4-5 and L5-S1. 2. There is abnormal localized area of increased density posteriorly at the laminectomy site at L4-5 with dimensions given above. This is concerning for small hematoma. Abscess is felt less likely gi sean the increased density noted. Recommend continued close followup. POS: [facility]
--- NOTE | 2019-12-10 13:43 | PRG ---
DATE OF SERVICE: 12/10/2019 SUBJECTIVE: Ms. Land has had a difficult postoperative course thus far. She initially had very severe pain upon waking up, that was quite diffuse. This required extensive medical management to control including steroids. She is now complaining of predominantly right leg pain, although she is quite comfortable at this time. She is having minimal amount of back pain. She reports she is having some difficulty with proximal leg strength while distal leg strength remains relatively intact. We obtained a CT scan of the lumbar spine, that is generally satisfactory. There may be a hair of medial breach of the pedicle right L5, that is unlikely to be symptomatic and certainly would not explain the proximal symptoms. IMPRESSION AND PLAN: Overall, I am reassured as the patient had uncomplicated surgery as well as a satisfactory postoperative lumbar CT scan. I am optimistic for continued progress, although she may need inpatient rehab. Job ID: [id number]
[2019-12-10] MEDS ORDERED: Gabapentin 300 MG CAP PO SCH (15:00)
[2019-12-10] MEDS: Dexamethasone 4 mg/ml Vial SLOW IVP SCH ×2 (15:22→21:13)
[2019-12-10] MEDS: Sodium Chloride 0.9% 1,000 ML IV SCH (16:15)
[2019-12-10] MEDS: traMADol HCl 50 MG TAB PO PRN (18:00)
[2019-12-10] MEDS: Amitriptyline HCl 25 MG TAB PO SCH (21:12)
[2019-12-10] MEDS: Rosuvastatin 5 MG TAB PO SCH (21:12)
[2019-12-10] MEDS: Amlodipine 10 MG TAB PO SCH (21:13)
[2019-12-11] MEDS: Sodium Chloride 0.9% 1,000 ML IV SCH ×2 (01:38→16:05)
[2019-12-11] MEDS: Dexamethasone 4 mg/ml Vial SLOW IVP SCH ×3 (05:57→21:22)
[2019-12-11] MEDS: Levothyroxine Sodium 112 MCG TAB PO SCH (05:57)
[2019-12-11] MEDS: Levothyroxine Sodium 25 MCG TAB PO SCH (05:57)
[2019-12-11 06:16] LABS: #Lymphocytes 0.7 thou/uL (1.20-3.40); #Monocytes 0.3 thou/uL (0.11-0.59); #Neutrophils 5.2 thou/uL (1.40-6.50); %Basophils 0.3 % (0.0-1.0); %Eosinophils 0.1 % (0.0-10.0); %Lymphocytes 11.4 % (21.0-51.0); %Monocytes 4.4 % (0.0-10.0); %Neutrophils 83.7 % (42.0-75.0); Hemoglobin 9.3 g/dL (12.0-16.0); Mean Corpuscular HGB CONC 32.8 g/dL (32.0-36.0); Mean Corpuscular Hemoglobin 28.4 pg (27.0-31.0); Mean Corpuscular Volume 86.5 fL (78.0-98.0); Mean Platelet Volume 7.5 fL (7.4-10.4); Platelet Count 170 thou/uL (130-400); RBC Distribution Width 14.1 % (11.5-14.5); Red Blood Cell (RBC) Count 3.27 mill/uL (4.20-5.40); White Blood Cell (WBC) Count 6.2 thou/uL (4.8-10.8)
[2019-12-11 06:35] LABS: Anion Gap 10 mmol/L (10-20); BUN (Urea Nitrogen) 24 mg/dL (9.8-20.1); Calc. Creatinine Clearance 71 mL/min (70-130); Calcium 9.2 mg/dL (7.8-10.44); Carbon Dioxide 28 mmol/L (23-31); Chloride 104 mmol/L (98-107); Estimated GFR-MDRD 78; Glucose 137 mg/dL (83-110); Potassium 4.2 mmol/L (3.5-5.1); Sodium 138 mmol/L (136-145)
[2019-12-11] MEDS: Citalopram 20 MG TAB PO SCH (08:41)
[2019-12-11] MEDS: CEFAZOLIN 2 GM in Premix Bag 1 BAG IVPB SCH ×3 (08:42→23:59)
[2019-12-11] MEDS: HYDROcodone/Acetaminophen 10/325 mg Tablet PO PRN ×2 (08:54→18:56)
--- NOTE | 2019-12-11 09:48 | PRG ---
DATE OF SERVICE: SUBJECTIVE: Patient is now postoperative day #2, status post L4-L5 decompression and fusion. Postoperatively, she had significant pain in the back and right proximal leg with some associated weakness. This was treated with steroids as well as pain medication and she is significantly improved today. She is moving much more easily in the bed and has improvement in her right lower extremity strength. Her BRANDON drain remains in place and has had approximately 90 mL of output overnight. She is currently getting Decadron [address] from yesterday of the lumbar spine was satisfactory. OBJECTIVE: On exam this morning, she is awake and smiling much more comfortable than yesterday. She is moving her legs much more easily in the bed and appears to have improved strength in the right proximal leg. Sensation is intact throughout. Vital signs are stable and she has been afebrile. I will go ahead and begin to taper down her Decadron. We will continue to work on pain control mobilization. We will have her work with Physical Therapy and Occupational Therapy and plan likely for inpatient rehab at some point. Job ID: [id number]
[2019-12-11] MEDS: tiZANidine HCl 4 MG TAB PO PRN ×2 (13:11→19:36)
--- NOTE | 2019-12-11 14:15 | PDOC.HOSPP ---
- Subjective Encounter Date: 12/11/19 Encounter Time: 11:45 Subjective: feels better, no pain today is eating well, no nausea has constipation and will be getting enema/suppository along with stool softeners - Objective Vital Signs & Weight: Vital Signs (12 hours) Temp Pulse Resp BP BP Pulse Ox 12/11/19 11:51 98.5 F 72 18 124/66 96 12/11/19 08:25 94 L 12/11/19 08:04 97.8 F 65 18 117/73 94 L 12/11/19 04:20 97.5 F L 68 18 114/57 L 95 Weight Weight 148 lb I&O: 12/10/19 12/11/19 12/12/19 06:59 06:59 05:59 Intake Total 2 Output Total 145 210 Balance 1976 - Result Diagrams: 12/11/19 05:34 12/11/19 05:34 Hospitalist ROS - Medication Medications: Active Medications Generic Name Dose Route Start Last Admin Trade Name Freq PRN Reason Stop Dose Admin Hydrocodone Bitart/Acetaminophen 1 tab 12/09/19 09:30 12/11/19 08:54 Hydrocodone/Acetaminophen 10/325 Mg Tablet PO 1 tab Q4H PRN Administration PAIN (1-3) Hydrocodone Bitart/Acetaminophen 2 tab 12/09/19 09:30 12/10/19 21:12 Hydrocodone/Acetaminophen 10/325 Mg Tablet PO 2 tab Q4H PRN Administration PAIN (4-6) Amitriptyline HCl 25 mg 12/09/19 21:00 12/10/19 21:12 Amitriptyline Hcl 25 Mg Tab PO 25 mg HS ISABEL Administration Amlodipine Besylate 10 mg 12/09/19 21:00 12/10/19 21:13 Amlodipine 10 Mg Tab PO 10 mg HS ISABEL Administration Citalopram Hydrobromide 20 mg 12/10/19 09:00 12/11/19 08:41 Citalopram 20 Mg Tab PO 20 mg DAILY ISABEL Administration Dexamethasone 2 mg 12/11/19 14:00 12/11/19 13:11 Dexamethasone 4 Mg/Ml Vial SLOW IVP 2 mg Q8HR ISABEL Administration Diphenhydramine HCl 25 mg 12/09/19 09:30 12/09/19 23:39 Diphenhydramine 25 Mg Cap PO 25 mg Q6H PRN Administration Itching Sodium Chloride 1,000 mls @ 75 mls/hr 12/09/19 09:30 12/11/19 01:38 Normal Saline 0.9% IV Not Given .[id number] ISABEL Cefazolin Sodium/Dextrose 2 gm 50 mls @ 100 mls/hr 12/09/19 16:00 12/11/19 08:42 / Device IVPB 50 mls Q8H ISABEL Administration Levothyroxine Sodium 112 mcg 12/10/19 06:00 12/11/19 05:57 Levothyroxine Sodium 112 Mcg Tab PO 112 mcg 0600 ISABEL Administration Levothyroxine Sodium 25 mcg 12/10/19 06:00 12/11/19 05:57 Levothyroxine Sodium 25 Mcg Tab PO 25 mcg 0600 ISABEL Administration Pantoprazole Sodium 40 mg 12/10/19 09:00 12/11/19 08:41 Pantoprazole 40 Mg Tab PO 40 mg DAILY ISABEL Administration Rosuvastatin Calcium 5 mg 12/09/19 21:00 12/10/19 21:12 Rosuvastatin 5 Mg Tab PO 5 mg HS ISABEL Administration Sodium Chloride 10 ml 12/09/19 21:00 12/11/19 09:12 Flush - Normal Saline 10 Ml Syringe IVF Not Given Q12HR ISABEL Sodium Chloride 10 ml 12/09/19 09:30 12/11/19 05:58 Flush - Normal Saline 10 Ml Syringe IVF 10 ml PRN PRN Administration Saline Flush Tizanidine HCl 4 mg 12/09/19 09:30 12/11/19 13:11 Tizanidine Hcl 4 Mg Tab PO 4 mg Q6H PRN Administration MUSCLE SPASM Tramadol HCl 100 mg 12/09/19 09:30 12/10/19 18:00 Tramadol Hcl 50 Mg Tab PO 100 mg Q6H PRN Administration PAIN (4-6) - Exam General Appearance: awake alert Eye: PERRL, anicteric sclera ENT: no oropharyngeal lesions, moist mucosa Neck: supple, no JVD Heart: RRR, no murmur Respiratory: no wheezes, no rales Gastrointestinal: soft, non-tender, non-distended, normal bowel sounds Extremities: no cyanosis, no edema Neurological: cranial nerve grossly intact, no focal deficits Psychiatric: A&O x 3 Hosp A/P (1) S/P lumbar laminectomy Code(s): Z98.890 - OTHER SPECIFIED POSTPROCEDURAL STATES Status: Acute (2) Hypothyroidism Code(s): E03.9 - HYPOTHYROIDISM, UNSPECIFIED Status: Chronic Qualifiers: Hypothyroidism type: unspecified Qualified Code(s): E03.9 - Hypothyroidism, unspecified (3) GERD (gastroesophageal reflux disease) Code(s): K21.9 - GASTRO-ESOPHAGEAL REFLUX DISEASE WITHOUT ESOPHAGITIS Status: Chronic Qualifiers: Esophagitis presence: esophagitis presence not specified Qualified Code(s): K21.9 - Gastro-esophageal reflux disease without esophagitis (4) Anxiety and depression Code(s): F41.9 - ANXIETY DISORDER, UNSPECIFIED; F32.9 - MAJOR DEPRESSIVE DISORDER, SINGLE EPISODE, UNSPECIFIED Status: Chronic (5) HTN (hypertension) Code(s): I10 - ESSENTIAL (PRIMARY) HYPERTENSION Status: Chronic Qualifiers: Hypertension type: essential hypertension Qualified Code(s): I10 - Esse ntial (primary) hypertension - Plan hemo/neurostable, is beginning to mobilize PT to ambulate as tolerated is on dexamethasone taper, morphine/norco prn continue elavil, celexa, synthroid and crestor ?rehab depending on PT eval
[2019-12-11] MEDS: Morphine 4 MG/ML VIAL SLOW IVP PRN (19:46)
[2019-12-11] MEDS: Rosuvastatin 5 MG TAB PO SCH (21:23)
[2019-12-11] MEDS: Amlodipine 10 MG TAB PO SCH (21:23)
[2019-12-11] MEDS: Amitriptyline HCl 25 MG TAB PO SCH (21:23)
[2019-12-12] MEDS: Levothyroxine Sodium 112 MCG TAB PO SCH (05:45)
[2019-12-12] MEDS: Dexamethasone 4 mg/ml Vial SLOW IVP SCH (05:46)
[2019-12-12] MEDS: Levothyroxine Sodium 25 MCG TAB PO SCH (05:46)
[2019-12-12 05:58] LABS: #Basophils 0.1 thou/uL (0.0-0.2); #Lymphocytes 0.9 thou/uL (1.20-3.40); #Monocytes 0.4 thou/uL (0.11-0.59); #Neutrophils 5.3 thou/uL (1.40-6.50); %Basophils 0.9 % (0.0-1.0); %Eosinophils 0.2 % (0.0-10.0); %Lymphocytes 13.6 % (21.0-51.0); %Monocytes 6.4 % (0.0-10.0); %Neutrophils 78.9 % (42.0-75.0); Hemoglobin 9.8 g/dL (12.0-16.0); Mean Corpuscular HGB CONC 32.7 g/dL (32.0-36.0); Mean Corpuscular Hemoglobin 28.4 pg (27.0-31.0); Mean Corpuscular Volume 86.9 fL (78.0-98.0); Mean Platelet Volume 7.3 fL (7.4-10.4); Platelet Count 202 thou/uL (130-400); RBC Distribution Width 14.3 % (11.5-14.5); Red Blood Cell (RBC) Count 3.45 mill/uL (4.20-5.40); White Blood Cell (WBC) Count 6.7 thou/uL (4.8-10.8)
[2019-12-12 06:17] LABS: Anion Gap 12 mmol/L (10-20); BUN (Urea Nitrogen) 24 mg/dL (9.8-20.1); Calc. Creatinine Clearance 75 mL/min (70-130); Calcium 9.4 mg/dL (7.8-10.44); Carbon Dioxide 26 mmol/L (23-31); Chloride 105 mmol/L (98-107); Estimated GFR-MDRD 83; Glucose 118 mg/dL (83-110); Potassium 3.9 mmol/L (3.5-5.1); Sodium 139 mmol/L (136-145)
[2019-12-12] MEDS: Sodium Chloride 0.9% 1,000 ML IV SCH ×2 (06:40→18:18)
--- NOTE | 2019-12-12 08:42 | PRG ---
DATE OF SERVICE: 12/12/2019 Ms. Land had an excellent day yesterday, but then a poor night with regard to her leg pain. We had to use some intravenous morphine last night. She is on Decadron taper as well as oral pain medication. I am optimistic for continued progress, but think it will be slow going. She will likely need inpatient rehab and evaluation is pending. Job ID: [id number]
[2019-12-12] MEDS: Morphine 4 MG/ML VIAL SLOW IVP PRN (08:45)
[2019-12-12] MEDS: Citalopram 20 MG TAB PO SCH (08:45)
[2019-12-12] MEDS: CEFAZOLIN 2 GM in Premix Bag 1 BAG IVPB SCH ×2 (08:46→16:32)
[2019-12-12] MEDS: tiZANidine HCl 4 MG TAB PO PRN (10:07)
--- NOTE | 2019-12-12 12:21 | PDOC.HOSPP ---
- Subjective Encounter Date: 12/12/19 Encounter Time: 09:20 Subjective: c/o pain in her right groin and leg area, its kind of constant pricking sensation she cant lift her right leg up well (around 10-20 degrees above bed) no nausea or abd pain has not had bm since admission - Objective Vital Signs & Weight: Vital Signs (12 hours) Temp Pulse Resp BP BP Pulse Ox 12/12/19 11:12 98.0 F 66 16 135/67 98 12/12/19 08:45 97 12/12/19 07:33 98.6 F 69 16 147/71 H 97 12/12/19 04:13 97.1 F L 72 18 168/72 H 95 Weight Weight 148 lb I&O: 12/11/19 12/12/19 12/13/19 07:59 06:59 06:59 Intake Total Output Total Balance Result Diagrams: 12/12/19 05:44 12/12/19 05:44 Hospitalist ROS - Medication Medications: Active Medications Generic Name Dose Route Start Last Admin Trade Name Freq PRN Reason Stop Dose Admin Hydrocodone Bitart/Acetaminophen 1 tab 12/09/19 09:30 12/11/19 18:56 Hydrocodone/Acetaminophen 10/325 Mg Tablet PO 1 tab Q4H PRN Administration PAIN (1-3) Hydrocodone Bitart/Acetaminophen 2 tab 12/09/19 09:30 12/12/19 00:00 Hydrocodone/Acetaminophen 10/325 Mg Tablet PO 2 tab Q4H PRN Administration PAIN (4-6) Amitriptyline HCl 25 mg 12/09/19 21:00 12/11/19 21:23 Amitriptyline Hcl 25 Mg Tab PO 25 mg HS ISABEL Administration Amlodipine Besylate 10 mg 12/09/19 21:00 12/11/19 21:23 Amlodipine 10 Mg Tab PO 10 mg HS ISABEL Administration Citalopram Hydrobromide 20 mg 12/10/19 09:00 12/12/19 08:45 Citalopram 20 Mg Tab PO 20 mg DAILY ISABEL Administration Diphenhydramine HCl 25 mg 12/09/19 09:30 12/09/19 23:39 Diphenhydramine 25 Mg Cap PO 25 mg Q6H PRN Administration Itching Sodium Chloride 1,000 mls @ 75 mls/hr 12/09/19 09:30 12/12/19 06:40 Normal Saline 0.9% IV Not Given .[id number] ISABEL Cefazolin Sodium/Dextrose 2 gm 50 mls @ 100 mls/hr 12/09/19 16:00 12/12/19 08:46 / Device IVPB 50 mls Q8H ISABEL Administration Levothyroxine Sodium 112 mcg 12/10/19 06:00 12/12/19 05:45 Levothyroxine Sodium 112 Mcg Tab PO 112 mcg 0600 ISABEL Administration Levothyroxine Sodium 25 mcg 12/10/19 06:00 12/12/19 05:46 Levothyroxine Sodium 25 Mcg Tab PO 25 mcg 0600 ISABEL Administration Morphine Sulfate 4 mg 12/09/19 09:30 12/12/19 08:45 Morphine 4 Mg/Ml Vial SLOW IVP 4 mg Q1H PRN Administration SEVERE BREAKTHROUGH PAIN Pantoprazole Sodium 40 mg 12/10/19 09:00 12/12/19 08:45 Pantoprazole 40 Mg Tab PO 40 mg DAILY ISABEL Administration Rosuvastatin Calcium 5 mg 12/09/19 21:00 12/11/19 21:23 Rosuvastatin 5 Mg Tab PO 5 mg HS ISABEL Administration Sodium Chloride 10 ml 12/09/19 21:00 12/12/19 10:03 Flush - Normal Saline 10 Ml Syringe IVF Not Given Q12HR ISABEL Sodium Chloride 10 ml 12/09/19 09:30 12/11/19 05:58 Flush - Normal Saline 10 Ml Syringe IVF 10 ml PRN PRN Administration Saline Flush Tizanidine HCl 4 mg 12/09/19 09:30 12/12/19 10:07 Tizanidine Hcl 4 Mg Tab PO 4 mg Q6H PRN Administration MUSCLE SPASM Tramadol HCl 100 mg 12/09/19 09:30 12/10/19 18:00 Tramadol Hcl 50 Mg Tab PO 100 mg Q6H PRN Administration PAIN (4-6) - Exam General Appearance: awake alert Eye: PERRL, anicteric sclera ENT: no oropharyngeal lesions, moist mucosa Neck: supple, no JVD Heart: RRR, no murmur, no gallops Respiratory: no wheezes, no rales, no ronchi Gastrointestinal: soft, non-tender, non-distended, normal bowel sounds Extremities: no cyanosis, no edema Neurological: cranial nerve grossly intact Psychiatric: normal affect, A&O x 3 Hosp A/P (1) S/P lumbar laminectomy Code(s): Z98.890 - OTHER SPECIFIED POSTPROCEDURAL STATES Status: Acute (2) Hypothyroidism Code(s): E03.9 - HYPOTHYROIDISM, UNSPECIFIED Status: Chronic Qualifiers: Hypothyroidism type: unspecified Qualified Code(s): E03.9 - Hypothyroidism, unspecified (3) GERD (gastroesophageal reflux disease) Code(s): K21.9 - GASTRO-ESOPHAGEAL REFLUX DISEASE WITHOUT ESOPHAGITIS Status: Chronic Qualifiers: Esophagitis presence: esophagitis presence not specified Qualified Code(s): K21.9 - Gastro-esophageal reflux disease without esophagitis (4) Anxiety and depression Code(s): F41.9 - ANXIETY DISORDER, UNSPECIFIED; F32.9 - MAJOR DEPRESSIVE DISORDER, SINGLE EPISODE, UNSPECIFIED Status: Chronic (5) HTN (hypertension) Code(s): I10 - ESSENTIAL (PRIMARY) HYPERTENSION Status: Chronic Qualifiers: Hypertension type: essential hypertension Qualified Code(s): I10 - Essential (primary) hypertension - Plan has right leg weakness which was present prior to surgery with pain now. PT to ambulate as tolerated is on dexamethasone taper, morphine/norco prn continue elavil, celexa, synthroid and crestor will need rehab for dc plan bowel regimen
[2019-12-12] MEDS ORDERED: Bisacodyl 10 MG SUPP PR PRN (12:22)
[2019-12-12] MEDS ORDERED: Fleet Enema 133 ML BOT PR SCH (12:30)
[2019-12-12 13:23] VITALS: BMI 36.1
[2019-12-12] MEDS: HYDROcodone/Acetaminophen 10/325 mg Tablet PO PRN ×3 (14:40→20:17)
[2019-12-12] MEDS: Amlodipine 10 MG TAB PO SCH (20:13)
[2019-12-12] MEDS: Docusate 100 MG CAP PO SCH (20:13)
[2019-12-12] MEDS: Rosuvastatin 5 MG TAB PO SCH (20:13)
[2019-12-12] MEDS: Amitriptyline HCl 25 MG TAB PO SCH (20:16)
[2019-12-12] MEDS ORDERED: Dexamethasone 4 mg/ml Vial SLOW IVP SCH (21:00)
[2019-12-12] MEDS: traMADol HCl 50 MG TAB PO PRN (22:47)
[2019-12-13] MEDS: CEFAZOLIN 2 GM in Premix Bag 1 BAG IVPB SCH (00:06)
[2019-12-13] MEDS: Morphine 4 MG/ML VIAL SLOW IVP PRN (00:06)
[2019-12-13] MEDS: tiZANidine HCl 4 MG TAB PO PRN (00:06)
[2019-12-13 05:23] LABS: #Lymphocytes 1.3 thou/uL (1.20-3.40); #Monocytes 0.6 thou/uL (0.11-0.59); #Neutrophils 5.1 thou/uL (1.40-6.50); %Basophils 0.3 % (0.0-1.0); %Eosinophils 0.2 % (0.0-10.0); %Lymphocytes 18.8 % (21.0-51.0); %Monocytes 8.1 % (0.0-10.0); %Neutrophils 72.6 % (42.0-75.0); Hemoglobin 9.9 g/dL (12.0-16.0); Mean Corpuscular HGB CONC 32.9 g/dL (32.0-36.0); Mean Corpuscular Hemoglobin 28.5 pg (27.0-31.0); Mean Corpuscular Volume 86.7 fL (78.0-98.0); Mean Platelet Volume 7.2 fL (7.4-10.4); Platelet Count 234 thou/uL (130-400); RBC Distribution Width 14.3 % (11.5-14.5); Red Blood Cell (RBC) Count 3.49 mill/uL (4.20-5.40)
[2019-12-13 05:35] LABS: Anion Gap 10 mmol/L (10-20); BUN (Urea Nitrogen) 26 mg/dL (9.8-20.1); Calc. Creatinine Clearance 87 mL/min (70-130); Carbon Dioxide 28 mmol/L (23-31); Chloride 105 mmol/L (98-107); Estimated GFR-MDRD 77; Sodium 139 mmol/L (136-145)
[2019-12-13 05:36] LABS: Calcium 8.9 mg/dL (7.8-10.44); Glucose 118 mg/dL (83-110)
[2019-12-13] MEDS: Levothyroxine Sodium 112 MCG TAB PO SCH (05:59)
[2019-12-13] MEDS: Levothyroxine Sodium 25 MCG TAB PO SCH (05:59)
[2019-12-13] MEDS: HYDROcodone/Acetaminophen 10/325 mg Tablet PO PRN ×2 (05:59→16:20)
[2019-12-13] MEDS: Sodium Chloride 0.9% 1,000 ML IV SCH (07:32)
--- NOTE | 2019-12-13 08:15 | PRG ---
DATE OF SERVICE: 12/13/2019 The patient is now postoperative day #4, status post L4-L5 decompression and fusion. She reports she had a good night last night and is having minimal pain this morning. She has been working with PT and OT. We have been trending her steroids down, and she should get her last dose today. Her BRANDON drain output has also trended down and only had 40 mL out overnight. She is complaining of some constipation. OBJECTIVE: VITAL SIGNS: Stable. GENERAL: Awake, alert, in no acute distress. MUSCULOSKELETAL: Free active range of motion of all extremities. No focal motor weakness. Incision clean, dry, and intact. PLAN: We will remove her BRANDON drain and discontinue her IV antibiotics. We will finish up with her IV Decadron today. We will give MiraLAX for constipation. I believe she is ready for transition to inpatient rehab at any point in time. Job ID: [id number]
[2019-12-13] MEDS: Docusate 100 MG CAP PO SCH (08:24)
[2019-12-13] MEDS: Citalopram 20 MG TAB PO SCH (08:25)
[2019-12-13] MEDS ORDERED: Dexamethasone 4 mg/ml Vial SLOW IVP SCH (09:00)
[2019-12-13] MEDS ORDERED: Polyethylene Glycol 3350 17 GM Packet PO SCH (09:00)
--- NOTE | 2019-12-13 13:08 | PDOC.HOSPP ---
- Subjective Encounter Date: 12/13/19 Encounter Time: 10:30 Subjective: Patient seen and examined for medical management. Denies any new complaints. Pain controlled. No fever or chills. - Objective Vital Signs & Weight: Vital Signs (12 hours) Temp Pulse Resp BP Pulse Ox 12/13/19 11:05 98.5 F 59 L 16 148/65 H 93 L 12/13/19 07:22 98.0 F 57 L 16 149/77 H 97 12/13/19 04:00 98.7 F 57 L 16 135/68 99 Weight Weight 185 lb I&O: 12/12/19 12/13/19 12/14/19 06:59 06:59 06:59 Intake Total 900 Output Total 1370 44 Balance -470 -44 Result Diagrams: 12/13/19 05:07 12/13/19 05:07 Hospitalist ROS - Review of Systems Respiratory: denies: cough, dry, shortness of breath, hemoptysis, SOB with excertion, pleuritic pain, sputum, wheezing, other Cardiovascular: denies: chest pain, palpitations, orthopnea, paroxysmal noc. dyspnea, edema, light headedness, other - Medication Medications: Active Medications Generic Name Dose Route Start Last Admin Trade Name Freq PRN Reason Stop Dose Admin Hydrocodone Bitart/Acetaminophen 1 tab 12/09/19 09:30 12/11/19 18:56 Hydrocodone/Acetaminophen 10/325 Mg Tablet PO 1 tab Q4H PRN Administration PAIN (1-3) Hydrocodone Bitart/Acetaminophen 2 tab 12/09/19 09:30 12/13/19 05:59 Hydrocodone/Acetaminophen 10/325 Mg Tablet PO 2 tab Q4H PRN Administration PAIN (4-6) Amitriptyline HCl 25 mg 12/09/19 21:00 12/12/19 20:16 Amitriptyline Hcl 25 Mg Tab PO 25 mg HS ISABEL Administration Amlodipine Besylate 10 mg 12/09/19 21:00 12/12/19 20:13 Amlodipine 10 Mg Tab PO 10 mg HS ISABEL Administration Citalopram Hydrobromide 20 mg 12/10/19 09:00 12/13/19 08:25 Citalopram 20 Mg Tab PO 20 mg DAILY ISABEL Administration Dexamethasone 2 mg 12/13/19 09:00 12/13/19 08:25 Dexamethasone 4 Mg/Ml Vial SLOW IVP 01/23/20 09:01 2 mg DAILY ISABEL Administration Diphenhydramine HCl 25 mg 12/09/19 09:30 12/09/19 23:39 Diphenhydramine 25 Mg Cap PO 25 mg Q6H PRN Administration Itching Docusate Sodium 100 mg 12/12/19 21:00 12/13/19 08:24 Docusate 100 Mg Cap PO 100 mg BID ISABEL Administration Sodium Chloride 1,000 mls @ 75 mls/hr 12/09/19 09:30 12/13/19 07:32 Normal Saline 0.9% IV Not Given .[id number] ISABEL Levothyroxine Sodium 112 mcg 12/10/19 06:00 12/13/19 05:59 Levothyroxine Sodium 112 Mcg Tab PO 112 mcg 0600 ISABEL Administration Levothyroxine Sodium 25 mcg 12/10/19 06:00 12/13/19 05:59 Levothyroxine Sodium 25 Mcg Tab PO 25 mcg 0600 ISABEL Administration Morphine Sulfate 4 mg 12/09/19 09:30 12/13/19 00:06 Morphine 4 Mg/Ml Vial SLOW IVP 4 mg Q1H PRN Administration SEVERE BREAKTHROUGH PAIN Pantoprazole Sodium 40 mg 12/10/19 09:00 12/13/19 08:24 Pantoprazole 40 Mg Tab PO 40 mg DAILY ISABEL Administration Polyethylene Glycol 17 gm 12/13/19 09:00 12/13/19 08:25 Polyethylene Glycol 3350 17 Gm Packet PO 17 gm DAILY ISABEL Administration Rosuvastatin Calcium 5 mg 12/09/19 21:00 12/12/19 20:13 Rosuvastatin 5 Mg Tab PO 5 mg HS ISABEL Administration Sodium Chloride 10 ml 12/09/19 21:00 12/13/19 08:26 Flush - Normal Saline 10 Ml Syringe IVF 10 ml Q12HR ISABEL Administration Sodium Chloride 10 ml 12/09/19 09:30 12/11/19 05:58 Flush - Normal Saline 10 Ml Syringe IVF 10 ml PRN PRN Administration Saline Flush Tizanidine HCl 4 mg 12/09/19 09:30 12/13/19 00:06 Tizanidine Hcl 4 Mg Tab PO 4 mg Q6H PRN Administration MUSCLE SPASM Tramadol HCl 100 mg 12/09/19 09:30 12/12/19 22:47 Tramadol Hcl 50 Mg Tab PO 100 mg Q6H PRN Administration PAIN (4-6) - Exam General Appearance: NAD Heart: RRR, no gallops Respiratory: no wheezes, no ronchi Gastrointestinal: non-tender, non-distended, normal bowel sounds Extremities: no cyanosis Neurological: no new deficit Hosp A/P - Plan DVT proph w/SCDs Hypertension Hyperlipidemia Anxiety Hypothyroidism Obesity with a BMI 36.1 Constipation Chronic anemia probably due to nutritional deficiency CKD stage II GERD Plan: Continue amlodipine. Continue current dose of levothyroxine. Continue Celexa with amitriptyline. Continue statins. Continue MiraLAX. Change Colace to Senokot-S. Patient also received enema yesterday. Await inpatient rehab placement.
[2019-12-13 20:11] VITALS: BP 162/72; TEMP 98.8
[2019-12-13] MEDS ORDERED: Senokot S 8.6-50 MG TAB PO SCH (21:00)
--- NOTE | 2019-12-14 12:54 | DIS ---
DATE OF ADMISSION: 12/10/2019 DATE OF DISCHARGE: 12/13/2019 Procedure: L4-L5 decompression and fusion The patient is a 74-year-old female, recently evaluated in our office for spondylolisthesis from stenosis. She underwent L4-L5 decompression and fusion on 12/09/2019. Following the surgery, she was transitioned to the Med/Surg floor. She initially had significant postoperative and right proximal leg pain. This was treated with steroids and pain medications and improved during her admission course. She worked with Physical Therapy and Occupational Therapy and they agreed that she was appropriate for inpatient rehabilitation at discharge. She was tolerating a regular diet and voiding appropriately. The patient transitioned to rehab on 12-13-19. We will follow up in 2 weeks for recheck. Discussed precautions and postoperative care. Job ID: [id number] MTDD
== END 2019-12-13 20:12 | DRG 460 ==
LOC: SDC 05:48 → SURG B 13:48 → OBSVTOIN 12-10 14:10
PROVIDERS: ADMIT Neurological Surgery; ATTEND Neurological Surgery
PROC: 0SG0071 Fusion of Lumbar Vertebral Joint with Autologous Tissue Substitute, Posterior Approach, Posterior Column, Open Approach (ICD-10-PCS; principal; 2019-12-09)
PROC: 01NB0ZZ Release Lumbar Nerve, Open Approach (ICD-10-PCS; 2019-12-09)
DX: M48.062 Spinal stenosis, lumbar region with neurogenic claudication (principal); M43.16 Spondylolisthesis, lumbar region; E03.9 Hypothyroidism, unspecified; K21.9 Gastro-esophageal reflux disease without esophagitis; M19.90 Unspecified osteoarthritis, unspecified site; F32.9 Major depressive disorder, single episode, unspecified; E78.5 Hyperlipidemia, unspecified; F41.9 Anxiety disorder, unspecified; G89.29 Other chronic pain; N18.2 Chronic kidney disease, stage 2 (mild); I12.9 Hypertensive chronic kidney disease with stage 1 through stage 4 chronic kidney disease, or unspecified chronic kidney disease; D53.9 Nutritional anemia, unspecified; E78.00 Pure hypercholesterolemia, unspecified; N32.89 Other specified disorders of bladder; K59.00 Constipation, unspecified; Z79.899 Other long term (current) drug therapy; Z79.890 Hormone replacement therapy; Z90.49 Acquired absence of other specified parts of digestive tract; Z87.442 Personal history of urinary calculi; Z87.440 Personal history of urinary (tract) infections; Z79.82 Long term (current) use of aspirin
CPT/HCPCS: 36415; 72131; 76000; 80048; 85025; 86780; 96365; C1713; C1768; G0378; J0690; J1100; J1170; J2175; J2270; J2405; J2550; J2704; J3010; J3370; J3490; Q0163

== ENCOUNTER 2019-12-23 12:39 | Outpatient (CLI) | payer MEDICARE, OTHER ==
--- NOTE | 2019-12-23 13:24 | RAD ---
RADIOGRAPH LUMBAR SPINE 2 VIEWS: DATE: 12/23/2019 HISTORY: 74-year-old female with low back pain. "Spondylolisthesis of lumbar region" COMPARISON: 05/28/2018 FINDINGS: 5 lumbar-type vertebrae. Vertebral body heights are maintained. T12-L1: Disc space maintained. L1-2: Severe disc space narrowing with endplate irregularity, anterior moderate-sized endplate osteop hytes, and retrolisthesis of L1 on L2, with no significant interval change. Mild left-convex lateral curvature. L2-3: Retrolisthesis of L2 on L3. Small endplate marginal osteophytes. Mild to moderate disc space na rrowing. No interval change. L3-4: Mild to moderate disc space narrowing. No interval change. L4-5: There are new unilateral right pedicle screws with interlocking severo. New midline laminectomy de fect. Grade 1 anterolisthesis of L4 on L5 again noted. Facet DJD. Moderate disc space narrowing. L5-S1: Facet DJD. Disc space maintained. New midline laminectomy defect. IMPRESSION: 1) status post midline laminectomies at L4-5 and L5-S1. 2) status post stabilization of grade 1 spondylolisthesis at L4-5 with unilateral right pedicle screw s. 3) severe degenerative disc disease at L1-2, unchanged.
== END 2019-12-23 12:40 | disposition home or self-care (01) ==
LOC: TBSIIMAG 12:39
PROVIDERS: ATTEND Neurological Surgery
DX: M43.16 Spondylolisthesis, lumbar region (principal); M51.36 Other intervertebral disc degeneration, lumbar region; Z98.890 Other specified postprocedural states
CPT/HCPCS: 72100

== ENCOUNTER 2020-04-18 12:18 | Outpatient (CLI) | payer MEDICARE, OTHER | END 2020-04-18 12:19 | disposition home or self-care (01) | LOC: SCSRAD 12:18 | PROVIDERS: ATTEND Neurological Surgery | DX: M43.16 Spondylolisthesis, lumbar region (principal); M47.816 Spondylosis without myelopathy or radiculopathy, lumbar region; Z98.890 Other specified postprocedural states | CPT/HCPCS: 72100; 80307; G0483 ==

== ENCOUNTER 2020-12-05 09:20 | Outpatient (CLI) | payer MEDICARE, OTHER | END 2020-12-05 09:21 | disposition home or self-care (01) | LOC: TBSIIMAG 09:20 | PROVIDERS: ATTEND Nurse Practitioner Acute Care | DX: G99.2 Myelopathy in diseases classified elsewhere (principal); M51.36 Other intervertebral disc degeneration, lumbar region; M48.061 Spinal stenosis, lumbar region without neurogenic claudication | CPT/HCPCS: 72148 ==

== ENCOUNTER 2022-09-16 13:21 | Outpatient (CLI) | payer MEDICARE, OTHER | END 2022-09-16 13:22 | disposition home or self-care (01) | LOC: SCSRAD 13:21 | PROVIDERS: ATTEND Family Medicine | DX: M25.512 Pain in left shoulder (principal); S42.032A Displaced fracture of lateral end of left clavicle, initial encounter for closed fracture ==

== ENCOUNTER 2022-09-16 15:59 | Emergency (ER) | payer MEDICARE, OTHER ==
[2022-09-16] MEDS ORDERED: Acetaminophen 325 MG TAB ONE (21:20)
[2022-09-16] MEDS ORDERED: Methocarbamol 500 MG TAB PO SCH (21:30)
== END 2022-09-16 22:12 | disposition home or self-care (01) ==
LOC: ERS 15:59
DX: S42.002A Fracture of unspecified part of left clavicle, initial encounter for closed fracture (principal); I10 Essential (primary) hypertension; E03.9 Hypothyroidism, unspecified; E78.00 Pure hypercholesterolemia, unspecified; K21.9 Gastro-esophageal reflux disease without esophagitis; Z79.82 Long term (current) use of aspirin; W18.30XA Fall on same level, unspecified, initial encounter; S09.90XA Unspecified injury of head, initial encounter; M25.519 Pain in unspecified shoulder; S49.92XA Unspecified injury of left shoulder and upper arm, initial encounter; L03.115 Cellulitis of right lower limb; S42.025A Nondisplaced fracture of shaft of left clavicle, initial encounter for closed fracture
CPT/HCPCS: 70450; 73030 ×2; 99284; G0463; 99213

== ENCOUNTER 2023-06-30 16:00 | Outpatient (CLI) | payer MEDICARE, OTHER | END 2023-06-30 16:01 | disposition home or self-care (01) | LOC: SLEEPLAB 16:00 | PROVIDERS: ATTEND Internal Medicine Critical Care Medicine | DX: G47.33 Obstructive sleep apnea (adult) (pediatric) (principal); R06.83 Snoring; R53.83 Other fatigue; R51.9 Headache, unspecified; K21.9 Gastro-esophageal reflux disease without esophagitis; I10 Essential (primary) hypertension; I48.91 Unspecified atrial fibrillation; G47.10 Hypersomnia, unspecified; G47.00 Insomnia, unspecified | CPT/HCPCS: 95810 ==

== ENCOUNTER 2023-09-01 16:00 | Outpatient (CLI) | payer MEDICARE, OTHER | END 2023-09-01 16:01 | disposition home or self-care (01) | LOC: SLEEPLAB 16:00 | PROVIDERS: ATTEND Internal Medicine Critical Care Medicine | DX: G47.33 Obstructive sleep apnea (adult) (pediatric) (principal); R53.83 Other fatigue; R51.9 Headache, unspecified; K21.9 Gastro-esophageal reflux disease without esophagitis; R06.83 Snoring; I10 Essential (primary) hypertension; I48.91 Unspecified atrial fibrillation; G47.61 Periodic limb movement disorder | CPT/HCPCS: 95811 ==